=== PATIENT | female | born 1945 | race Caucasian/White ===

== ENCOUNTER → 2019-07-22 11:22 | Outpatient (CLI) | payer MEDICARE, SELFPAY ==
[2019-07-22 13:04] LABS: BUN Creatinine Ratio 27.9 (6-22); Blood Urea Nitrogen 19 mg/dL (7-17); Carbon Dioxide 27 mmol/L (22-32); Chloride 102 mmol/L (98-107); Estimated Glomerular Filt Rate > 60.0 mL/min (>60); Glucose 156 mg/dL (80-110); HEMOLYSIS < 15 (0-50); Potassium 3.5 mmol/L (3.4-5.1); Sodium 137 mmol/L (137-145)
[2019-07-22 13:16] LABS: Vitamin D 25 Hydroxy (D3) 22.3 ng/mL (30.0-100.0)
== END ==
PROVIDERS: PCP Student in an Organized Health Care Education/Training Program; Referring Provider Student in an Organized Health Care Education/Training Program; Visit Provider Student in an Organized Health Care Education/Training Program
DX: E55.9 Vitamin D deficiency, unspecified (principal); I10 Essential (primary) hypertension
CPT/HCPCS: 36415; 80048; 82306

== ENCOUNTER → 2019-10-22 11:20 | Outpatient (CLI) | payer MEDICARE, SELFPAY ==
--- NOTE | 2019-10-22 11:32 | DI.MG.S_ITS ---
Patient Name: HILL MENESES date: 1945 Sex: F Attending Physician: Letitia Indications: Date: 10/22/2019 11:38 At the request of: HAILEY ARTEAGA Procedure: MM screening mammo BI BILATERAL DIGITAL SCREENING MAMMOGRAM 3D/2D WITH CAD: 10/22/2019 CLINICAL: Routine screening. Comparison is made to exams dated: 02/17/2017 mammogram, 07/13/2014 mammogram, and 06/22/2014 mammogram - [facility]. The tissue of both breasts is heterogeneously dense. This may lower the sensitivity of mammography. Current study was also evaluated with a Computer Aided Detection (CAD) system. No significant masses, calcifications, or other findings are seen in either breast. There has been no significant interval change. IMPRESSION: NEGATIVE There is no mammographic evidence of malignancy. A 1 year screening mammogram is recommended. This exam was interpreted at Station ID: [id number]. NOTE: For mammograms, a report in lay terms will be sent to the patient. Approximately 15% of breast malignancies will not be visualized mammographically. In the management of a palpable breast mass, a negative mammogram must not discourage biopsy of a clinically suspicious lesion. Electronically Signed By: Faheem bowling/eulalia:10/24/2019 08:51:06 letter sent: Normal Exam ACR BI-RADS Category 1: Negative [id number]
== END ==
PROVIDERS: PCP Student in an Organized Health Care Education/Training Program; Referring Provider Student in an Organized Health Care Education/Training Program; Visit Provider Student in an Organized Health Care Education/Training Program
DX: Z12.31 Encounter for screening mammogram for malignant neoplasm of breast (principal)
CPT/HCPCS: 77063; 77067

== ENCOUNTER → 2019-10-27 12:07 | Outpatient (CLI) | payer MEDICARE, SELFPAY ==
[2019-10-27 13:03] LABS: Appearance Urine UA SL CLOUDY; Bilirubin Urine UA NEGATIVE (NEGATIVE); Color Urine UA YELLOW; Glucose Urine UA NEGATIVE (Negative); Ketones Urine UA NEGATIVE (NEGATIVE); Leukocyte Esterase Urine UA 1+ (NEGATIVE); Nitrite Urine UA POSITIVE (Negative); Occult Blood Urine UA 1+ (Negative); Protein Urine UA NEGATIVE (Negative); Urobilinogen Urine UA 0.2 E.U./dL (0.2)
[2019-10-27 13:06] LABS: pH Urine UA 5.5 (4.5-8.0)
[2019-10-27 13:16] LABS: Bacteria Urine Many (>30); RBC Urine 1-5/HPF (0-5/HPF); Squamous Epithelial Cell Urine 1-5 /HPF (0-5/HPF); WBC Urine 10-30/HPF (0-5/HPF)
[2019-10-27 13:17] LABS: Culture Indicated Urine Specimen Cultured
== END ==
PROVIDERS: PCP Student in an Organized Health Care Education/Training Program; Referring Provider Student in an Organized Health Care Education/Training Program; Visit Provider Student in an Organized Health Care Education/Training Program
DX: R82.90 Unspecified abnormal findings in urine (principal); Z87.440 Personal history of urinary (tract) infections
CPT/HCPCS: 81001; 87077; 87086; 87186

== ENCOUNTER 2020-03-13 23:58 | Observation (INO) | payer MEDICARE, SELFPAY ==
[2020-03-14] VITALS (22 sets, daily range): BP systolic 129–202; BP diastolic 59–169; PULSE 72–84; RESP 14–24; TEMP 35.8–36.8; O2SAT 88–97; BMI 25.0
--- NOTE | 2020-03-14 00:14 | DI.RAD.S_ITS ---
PROCEDURE: XR CHEST 1V INDICATIONS: shortness of breath TECHNIQUE: One view of the chest was acquired. COMPARISON: None. FINDINGS: Surgical changes and devices: None. Lungs and pleura: Lungs are clear. No pleural effusions or pneumothorax. Mediastinum: Mediastinal contours appear normal. Heart size is normal. Bones and chest wall: No suspicious bony lesions. Overlying soft tissues appear unremarkable. IMPRESSION: No acute cardiopulmonary disease process. Dictated by: Darleen Delgado MD, PhD on 03/14/2020 at 9:09 Approved by: Darleen Delgado MD, PhD on 03/14/2020 at 9:10
[2020-03-14 00:25] LABS: Add Manual Diff / Slide Review NO; Basophils Absolute Auto 0 /uL (0-100); Basophils Percent Auto 0.6 % (0-2); Eosinophils Absolute Auto 200 /uL (0-450); Eosinophils Percent Auto 2.7 % (2-4); Hematocrit 41.9 % (36-46); Hemoglobin 14.4 g/dL (12.0-16.0); Lymphocytes Absolute Auto 2600 /uL (1100-4500); Lymphocytes Percent Auto 37.2 % (25-40); Mean Corpuscular HGB Conc 34.4 % (30-36); Mean Corpuscular Hemoglobin 32.4 PG (26-34); Monocytes Absolute Auto 900 /uL (0-900); Neutrophils Absolute Auto 3400 /uL (1500-7000); Neutrophils Percent Auto 47.5 % (50-75); Platelet Count 277 X10^3/uL (150-400); Red Blood Cell Count 4.46 X10^6/uL (4.0-5.2); Red Cell Distribution Width 12.9 % (11.6-14.8); White Blood Cell Count 7.1 X10^3/uL (4.5-11.0)
[2020-03-14 00:33] LABS: Alanine Aminotransferase 22 IU/L (<35); Albumin 4.3 g/dL (3.5-5.0); Albumin Globulin Ratio 1.3 (1.0-2.8); Alkaline Phosphatase 80 U/L (38-126); Aspartate Aminotransferase 32 IU/L (14-36); BUN Creatinine Ratio 21.5 (6-22); Bilirubin Total 0.4 mg/dL (0.2-1.3); Blood Urea Nitrogen 26 mg/dL (7-17); Calcium 9.3 mg/dL (8.4-10.2); Carbon Dioxide 30 mmol/L (22-32); Chloride 101 mmol/L (98-107); Estimated Glomerular Filt Rate 43.6 mL/min (>60); Globulin 3.4 g/dL (1.7-4.1); Glucose 129 mg/dL (80-110); HEMOLYSIS 21 (0-50); Lactate (Lactic Acid) 1.6 mmol/L (0.7-2.1); Potassium 3.5 mmol/L (3.4-5.1); Sodium 139 mmol/L (137-145); Total Protein 7.7 g/dL (6.3-8.2)
--- NOTE | 2020-03-14 00:47 | ED_ITS ---
HPI - SOB/Dyspnea General Chief Complaint: Upper Respiratory Symptoms Stated Complaint: states difficulty breathing Time Seen by Provider: 03/14/20 00:38 Source: patient Mode of arrival: Ambulatory Limitations: no limitations History of Present Illness HPI Narrative: Patient complains of nocturnal dyspnea/with laying down. Denies any recent illness cough cold congestion fever chills or COVID exposure. Denies any chest pain or palpitations. No weight gain or extremity edema. History of asthma/COPD. Followed by senior web architect at [facility]. Two years ago. Is on breathing treatments. Former smoker decades ago. Is not on oxygen at home. Five days ago at home she had experienced at bedtime laying down shortness of breath could not catch her breath. No pain. No syncope. No history of blood clots in legs or lungs. No recent long travel or immobilization. No symptoms again no symptoms during the day. No exertional chest pain or dyspnea. Blood pressure noted. Patient is very anxious. Tonight she was spending the night at a friend's house and had the same experience at rest/laying down. Could not sleep. Again no pain. Only dyspnea. Feeling better now. Patient evaluated by respiratory therapist. Peak flow is appropriate. Clear lung sounds and no hypoxia. No indications for breathing treatment. Patient is a retired nurse from [facility] Complaint: shortness of breath Related Data Home Medications Medication Instructions Recorded Confirmed albuterol sulfate 2 inh INHALATION Q4-6H PRN 03/14/20 03/14/20 naproxen 03/14/20 Previous Rx's Medication Instructions Recorded umeclidinium 62.5 mcg-vilanterol 1 inhalation INHALATION DAILY #60 07/22/19 25 mcg/actuation powdr for each inhalation estradiol 1 mg tablet 1 mg PO DAILY #90 tab 08/15/19 levothyroxine 75 mcg tablet 75 mcg PO QAM #90 tab 08/25/19 simvastatin 20 mg tablet 20 mg PO DAILY #90 tab 08/25/19 hydrochlorothiazide 12.5 mg tablet 12.5 mg PO DAILY #90 tab 09/02/19 losartan 50 mg tablet 50 mg PO DAILY #90 tab 09/02/19 Allergies Allergy/AdvReac Type Severity Reaction Status Date / Time lisinopril Allergy Mild cough Verified 07/22/19 10:25 Review of Systems Review of Systems Narrative: GENERAL: Denies chills, fatigue, malaise, fever, sweats. HEENT: Denies sinus pain, ear pain, sore throat, difficulty swallowing RESPIRATORY: Complaint dyspnea, denies cough CARDIOVASCULAR: Denies chest pain, palpitations, edema, GASTROINTESTINAL: Denies nausea, vomiting, abdominal pain, diarrhea, constipation, melena. : Denies dysuria, frequency, hematuria MUSCULOSKELETAL: denies muscle or bony pain SKIN: Denies rash, skin lesions NEUROLOGIC: Denies weakness, headache, numbness, change in speech, confusion ROS Unobtainable: All systems reviewed & are unremarkable except as noted in HPI and below Patient History Social History household members: none Smoking Status: Former smoker Smoking Status: Former smoker alcohol intake frequency: holidays/special occasions only Substance Use Type: does not use Exam Narrative Exam Narrative: GENERAL: patient appears stated age. Well-nourished, well- developed patient, in no distress, not toxic not dyspneic HEAD: Normocephalic. EYES: Pupils equal round and reactive. No scleral icterus. No injection no discharge ENT: Mucous membranes moist. No drooling no tongue elevation no trismus no malocclusion NECK: Trachea midline. Non tender CARDIOVASCULAR: Regular rate and rhythm without murmurs, gallops, or rubs. RESPIRATORY: Clear to auscultation. Breath sounds equal bilaterally. No wheezes, rales, or rhonchi. Speaks full sentences GASTROINTESTINAL: Abdomen soft, non-tender, nondistended. EXTREMITIES: No gross deformities. No ankle or pedal edema BACK: Nontender without deformity or crepitance. No flank tenderness. NEURO: AOx4. SKIN: Warm and dry PSYCH: Slightly anxious, is cooperative Initial Vital Signs Initial Vital Signs: Vital Signs Temperature 96.5 F L 03/14/20 00:00 Pulse Rate 80 03/14/20 00:00 Respiratory Rate 20 03/14/20 00:00 Blood Pressure 192/88 H 03/14/20 00:00 Pulse Oximetry 97 03/14/20 00:00 Course Course Course Narrative: Improvement with blood pressure while here. Decision to Admit Date: 03/14/20 Decision to Admit time: 01:58 Orders Ordered: ED Orders 03/14/20 00:14 XR chest 1V Stat EKG-12 Lead Stat Measure peak expiratory flow ONCE RT Consult Eval and Treat Now 03/14/20 00:15 Complete Blood Count AUTO DIFF Stat Comprehensive Metabolic Panel Stat Lactate (Lactic Acid) Stat NT-proBNP (BNP-Adult 18+) Stat 03/14/20 00:55 COVID19 Stat Reevaluation(s) Reevaluation #1: Blood pressure of 157/89, has improved without medication. Patient much more relaxed. Up and walking in hallway 88/89% room air. Patient states her baseline is 98% room air. Time: 01:43 Reevaluation #2: Reviewed with patient and she agrees for admission Time: 01:44 Consultations Consultation #1: Spoke with hospitalist, Jigar, will admit. No D-dimer at this time. Patient renal function not amenable for IV contrast CT Time: 01:58 Vital Signs Vital signs: Vital Signs - 8 hr 03/14/20 00:00 03/14/20 00:29 03/14/20 00:53 Temperature 96.5 F L Pulse Rate 80 82 83 Respiratory Rate 20 14 24 Blood Pressure 192/88 H Pulse Oximetry 97 96 92 03/14/20 00:57 03/14/20 01:00 03/14/20 01:30 Temperature Pulse Rate 83 84 80 Respiratory Rate 21 24 18 Blood Pressure 164/88 H 157/84 H 157/89 H Pulse Oximetry 91 91 92 03/14/20 01:48 03/14/20 02:00 Temperature Pulse Rate 80 84 Respiratory Rate 18 Blood Pressure 202/169 H Pulse Oximetry 96 97 MDM - SOB/Dyspnea Differential Diagnosis Differential diagnosis: Likely acute exacerbation of chronic obstructive airways disease, congestive heart failure, community acquired pneumonia and asthma with exacerbation Lab Data Attestation: I reviewed the patient's lab results. Result diagrams: 03/14/20 00:15 03/14/20 00:15 Labs: Lab Results 03/14/20 03/14/20 03/14/20 Range/Units 00:15 00:15 00:15 WBC 7.1 (4.5-11.0) X10^3/uL RBC 4.46 (4.0-5.2) X10^6/uL Hgb 14.4 (12.0-16.0) g/dL Hct 41.9 (36-46) % MCV 94.0 (80-100) fL MCH 32.4 (26-34) PG MCHC 34.4 (30-36) % RDW 12.9 (11.6-14.8) % Plt Count 277 (150-400) X10^3/uL Neut % (Auto) 47.5 L (50-75) % Lymph % (Auto) 37.2 (25-40) % [place] % (Auto) 12.0 (3-14) % Eos % (Auto) 2.7 (2-4) % Baso % (Auto) 0.6 (0-2) % Neut # (Auto) 3400 (7313-3636) /uL Lymph # (Auto) 2600 (7690-4813) /uL [place] # (Auto) 900 (0-900) /uL Eos # (Auto) 200 (0-450) /uL Baso # (Auto) 0 (0-100) /uL Sodium 139 (137-145) mmol/L Potassium 3.5 (3.4-5.1) mmol/L Chloride 101 (98-107) mmol/L Carbon Dioxide 30 (22-32) mmol/L BUN 26 H (7-17) mg/dL Creatinine 1.21 H (0.52-1.04) mg/dL Estimated GFR 43.6 L (>60) mL/min BUN/Creatinine Ratio 21.5 (6-22) Glucose 129 H (80-110) mg/dL Lactate 1.6 (0.7-2.1) mmol/L Calcium 9.3 (8.4-10.2) mg/dL Total Bilirubin 0.4 (0.2-1.3) mg/dL AST 32 (14-36) IU/L ALT 22 (<35) IU/L Alkaline Phosphatase 80 (38-126) U/L NT-Pro-B Natriuret Pep (<125) pg/mL Total Protein 7.7 (6.3-8.2) g/dL Albumin 4.3 (3.5-5.0) g/dL Globulin 3.4 (1.7-4.1) g/dL Albumin/Globulin Ratio 1.3 (1.0-2.8) SARS-CoV-2 (PCR) (Negative) 03/14/20 03/14/20 Range/Units 00:15 00:55 WBC (4.5-11.0) X10^3/uL RBC (4.0-5.2) X10^6/uL Hgb (12.0-16.0) g/dL Hct (36-46) % MCV (80-100) fL MCH (26-34) PG MCHC (30-36) % RDW (11.6-14.8) % Plt Count (150-400) X10^3/uL Neut % (Auto) (50-75) % Lymph % (Auto) (25-40) % [place] % (Auto) (3-14) % Eos % (Auto) (2-4) % Baso % (Auto) (0-2) % Neut # (Auto) (9800-6275) /uL Lymph # (Auto) (8179-8671) /uL [place] # (Auto) (0-900) /uL Eos # (Auto) (0-450) /uL Baso # (Auto) (0-100) /uL Sodium (137-145) mmol/L Potassium (3.4-5.1) mmol/L Chloride (98-107) mmol/L Carbon Dioxide (22-32) mmol/L BUN (7-17) mg/dL Creatinine (0.52-1.04) mg/dL Estimated GFR (>60) mL/min BUN/Creatinine Ratio (6-22) Glucose (80-110) mg/dL Lactate (0.7-2.1) mmol/L Calcium (8.4-10.2) mg/dL Total Bilirubin (0.2-1.3) mg/dL AST (14-36) IU/L ALT (<35) IU/L Alkaline Phosphatase (38-126) U/L NT-Pro-B Natriuret Pep 64 (<125) pg/mL Total Protein (6.3-8.2) g/dL Albumin (3.5-5.0) g/dL Globulin (1.7-4.1) g/dL Albumin/Globulin Ratio (1.0-2.8) SARS-CoV-2 (PCR) Negative (Negative) Imaging Data Chest x-ray: Radiologist's Impression: No acute cardiopulmonary abnormality ECG Data Attestation: I personally reviewed and interpreted this ECG as follows: Interpretation: Normal sinus rhythm, no ST elevation or depression. Rate 76. MDM Narrative Medical decision making narrative: Patient is not on beta-marlys. Appropriate for admission. Patient is not at baseline room air oxygen saturation. Is hypoxic. Discharge Plan Departure Patient Disposition: Admitted as Observation Clinical Impression: Acute dyspnea Admit Date/Time: 03/14/20 02:01 Admit Provider: Rafael Daily
[2020-03-14 01:09] LABS: NT-proBNP (BNP-Adult 18+) 64 pg/mL (<125)
[2020-03-14 01:16] LABS: COVID19 -Nasal RAPID Negative (Negative)
[2020-03-14 02:58] LABS: Creatine Kinase 81 U/L (30-135)
[2020-03-14 03:06] LABS: Magnesium 1.8 mg/dL (1.6-2.3)
[2020-03-14] MEDS: SODIUM CHLORIDE 0.9% 1,000 ML 100 ML IV (03:09)
[2020-03-14 03:11] LABS: Troponin I < 0.012 ng/mL (0.01-0.034)
--- NOTE | 2020-03-14 04:07 | PC.NURSE ---
patient got admitted from ED to room 214 AC, pt is ambulating independently, A and O [id number] chest pain, difficulty breathing, pain, dizziness, and nausea. Pt is hard of hearing and does not have her hearing aids with her. call light functions explained to patient and is within reach, bed in lowest position. will continue to monitor
[2020-03-14] MEDS: LEVOTHYROXINE 75 MCG TABLET PO (05:00)
--- NOTE | 2020-03-14 06:03 | P.HP_ITS ---
History of Present Illness History of Present Illness Date Patient Seen: 03/14/20 Time Patient Seen: 03:05 Chief complaint: states difficulty breathing Narrative: Ms. Anthony Mitchell is a 74-year-old female patient with a past medical history significant for hypertension, COPD mild emphysema, hyperlipidemia, hypothyroidism and major depression who presents to the ER with 2 episodes of waking up at night profoundly short of breath. The patient Lives on [facility] the 1st episode was 5 days ago when she went to bed and woke up gasping for air with severe hunger and diaphoresis tremulous. She states everything felt heavy but denies complaints of chest pain or palpitations. The patient was cleared after the 1st event and came to stay with a friend in [place]. last night she experienced the same severe dyspnea. She had gone to bed and again woke up with severe air hunger with diaphoresis and tremulous and presented to the ER. the patient is not experience the symptoms previously and has had no recent flu or cold symptoms, fevers or chills and no known COVID-19 exposures. She denies headaches or dizziness nasal congestion or sore throat. She reports no chest pain or palpitations. She has mild COPD and is followed by pulmonology at [facility]. She has been using her Anoro inhaler with good effect. her breathing had returned to normal between episodes without complications. She denies complaints of abdominal pain, nausea vomiting and has had no changes in bowel or bladder habits. The patient is typically active and reports she go up a flight of stairs issue base herself without dyspnea. Upon arrival to the ER the patient is afebrile with temperature 96.5?, heart rate of 80, blood pressure of 192/88, respirations 20 saturating 97% on room air. A chest x-ray obtained which shows no acute cardiopulmonary pathology. Twelve lead EKG shows sinus rhythm at rate of 76 with no ectopy, ST or T-wave changes, septal infarct Q-waves in V1 and V2. On laboratory analysis her WBCs are 7.1 without shift, hemoglobin of 14.4 and a hematocrit of 41.9 with platelets of 277. her electrolytes are within normal limits she has a BUN of 26 and a creatinine of 1.21 with an EGFR 43.6 and BUN creatinine ratio of 21.5. Her liver functions are all within normal limits. proBNP is 64. COVID screening is negative. While in the ER is reported the patient's oxygen saturations dropped into the 80s to low 90s far below the patient's typical reported saturation of 96-98%. The patient is admitted to the hospitalist service for further evaluation of dyspnea. Patient History Medical History (Updated 03/14/20 @ 06:18 by CRUZ Albarado) Acquired hypothyroidism Cervical arthritis COPD (chronic obstructive pulmonary disease) Dysthymia Essential hypertension Mixed hyperlipidemia Surgical History (Updated 03/14/20 @ 06:18 by CRUZ Albarado) History of hysterectomy Family & Social History Family History (Updated 03/14/20 @ 06:20 by CRUZ Albarado) Brother Diabetes mellitus Sister Diabetes mellitus Mother Diabetes mellitus Dementia Cancer Father Alcoholism Trauma Social History: household members none Prior Living Arrangements House Safety & Behavioral: Feels Safe in Current Yes Environment Been Physically Hurt or No Threatened By a Person Suicidal Ideation Description None Suicide Plan Description No Plan Tobacco & Substance use: Smoking Status Former smoker alcohol intake frequency holiday/special occasion Substance Use Type does not use Meds Home Medications and Allergies Home Medications Medication Instructions Recorded Confirmed Type umeclidinium 62.5 mcg-vilanterol 1 inhalation INHALATION DAILY #60 07/22/19 03/14/20 Rx 25 mcg/actuation powdr for each inhalation estradiol 1 mg tablet 1 mg PO DAILY #90 tab 08/15/19 03/14/20 Rx levothyroxine 75 mcg tablet 75 mcg PO QAM #90 tab 08/25/19 03/14/20 Rx simvastatin 20 mg tablet 20 mg PO DAILY #90 tab 08/25/19 03/14/20 Rx hydrochlorothiazide 12.5 mg tablet 12.5 mg PO DAILY #90 tab 09/02/19 03/14/20 Rx losartan 50 mg tablet 50 mg PO DAILY #90 tab 09/02/19 03/14/20 Rx albuterol sulfate 2 inh INHALATION Q4-6H PRN 03/14/20 03/14/20 History naproxen 03/14/20 History Allergies Allergy/AdvReac Type Severity Reaction Status Date / Time lisinopril Allergy Mild cough Verified 07/22/19 10:25 Review of Systems Review of Systems ROS: Yes All systems reviewed with the patient and are negative except as otherwise documented Exam Vital Signs (past 8 hours): - 03/14/20 00:00 03/14/20 00:29 03/14/20 00:53 Temperature 96.5 F L Pulse Rate 80 82 83 Respiratory Rate 20 14 24 Blood Pressure 192/88 H Pulse Oximetry 97 96 92 03/14/20 00:57 03/14/20 01:00 03/14/20 01:30 Temperature Pulse Rate 83 84 80 Respiratory Rate 21 24 18 Blood Pressure 164/88 H 157/84 H 157/89 H Pulse Oximetry 91 91 92 03/14/20 01:48 03/14/20 02:00 03/14/20 02:08 Temperature Pulse Rate 80 84 Respiratory Rate 18 22 Blood Pressure 202/169 H Pulse Oximetry 96 97 88 L 03/14/20 02:25 03/14/20 02:47 Temperature 97.9 F Pulse Rate 77 Respiratory Rate 18 Blood Pressure 150/83 H Pulse Oximetry 96 95 Oxygen Delivery Method Room Air Oxygen Flow Rate 0 Narrative Exam Narrative: GENERAL APPEARANCE: well developed, well nourished, lying semi recumbent in bed in no acute distress. HEENT: Normocephalic, PERRLA, conjunctiva clear, EOMs intact without nystagmus, mucous membranes are pink and dry. NECK/THYROID: neck supple, no JVD, no thyromegaly, trachea midline. LYMPH NODES: no cervical or supraclavicular lymphadenopathy. SKIN: [place], warm and dry, no visible lesions, rashes, ulcerations or petechiae. HEART: regular rate and rhythm, S1-S2, no murmur, no rubs or gallops, brisk capillary refill, 2+ dorsalis pedis pulses, no edema. LUNGS: clear to auscultation bilaterally, no coarseness crackles or wheezing, no cough present. CHEST: Symmetrical movement, no accessory muscle use, good tidal volume. ABDOMEN: Soft, no distention, no epigastric or abdominal tenderness, no organomegaly, no flank or suprapubic tenderness, active bowel tones. BACK: Normal curvature, nontender to palpation, no CVA tenderness on percussion EXTREMITIES: moves all extremities, strength is 5/5 and symmetrical, no deformities or joint effusions, no clubbing or cyanosis. NEUROLOGIC: AAO x4, no lateralizing neurologic deficits, cranial nerves II-XII grossly intact, decreased sensation bilateral toes, mildly impaired hearing. PSYCH: Good judgment, good insight, linear thought process, cooperative, appropriate with stable behavior Objective Labs Result Diagrams: 03/14/20 00:15 03/14/20 00:15 Labs: Laboratory Results - last 24 hr 03/14/20 03/14/20 03/14/20 00:15 00:15 00:15 WBC 7.1 RBC 4.46 Hgb 14.4 Hct 41.9 MCV 94.0 MCH 32.4 MCHC 34.4 RDW 12.9 Plt Count 277 Neut % (Auto) 47.5 L Lymph % (Auto) 37.2 [place] % (Auto) 12.0 Eos % (Auto) 2.7 Baso % (Auto) 0.6 Neut # (Auto) 3400 Lymph # (Auto) 2600 [place] # (Auto) 900 Eos # (Auto) 200 Baso # (Auto) 0 Sodium 139 Potassium 3.5 Chloride 101 Carbon Dioxide 30 BUN 26 H Creatinine 1.21 H Estimated GFR 43.6 L BUN/Creatinine Ratio 21.5 Glucose 129 H Lactate 1.6 Calcium 9.3 Magnesium Total Bilirubin 0.4 AST 32 ALT 22 Alkaline Phosphatase 80 Total Creatine Kinase CK-MB (CK-2) CK-MB (CK-2) Rel Index Troponin I NT-Pro-B Natriuret Pep Total Protein 7.7 Albumin 4.3 Globulin 3.4 Albumin/Globulin Ratio 1.3 SARS-CoV-2 (PCR) 03/14/20 03/14/20 03/14/20 00:15 00:15 00:15 WBC RBC Hgb Hct MCV MCH MCHC RDW Plt Count Neut % (Auto) Lymph % (Auto) [place] % (Auto) Eos % (Auto) Baso % (Auto) Neut # (Auto) Lymph # (Auto) [place] # (Auto) Eos # (Auto) Baso # (Auto) Sodium Potassium Chloride Carbon Dioxide BUN Creatinine Estimated GFR BUN/Creatinine Ratio Glucose Lactate Calcium Magnesium 1.8 Total Bilirubin AST ALT Alkaline Phosphatase Total Creatine Kinase 81 CK-MB (CK-2) TNP CK-MB (CK-2) Rel Index TNP Troponin I < 0.012 NT-Pro-B Natriuret Pep 64 Total Protein Albumin Globulin Albumin/Globulin Ratio SARS-CoV-2 (PCR) 03/14/20 00:55 WBC RBC Hgb Hct MCV MCH MCHC RDW Plt Count Neut % (Auto) Lymph % (Auto) [place] % (Auto) Eos % (Auto) Baso % (Auto) Neut # (Auto) Lymph # (Auto) [place] # (Auto) Eos # (Auto) Baso # (Auto) Sodium Potassium Chloride Carbon Dioxide BUN Creatinine Estimated GFR BUN/Creatinine Ratio Glucose Lactate Calcium Magnesium Total Bilirubin AST ALT Alkaline Phosphatase Total Creatine Kinase CK-MB (CK-2) CK-MB (CK-2) Rel Index Troponin I NT-Pro-B Natriuret Pep Total Protein Albumin Globulin Albumin/Globulin Ratio SARS-CoV-2 (PCR) Negative Assessment & Plan Assessment & Plan narrative: This is a 74-year-old female patient with a past medical history significant for hypertension, COPD mild emphysema, hyperlip idemia, hypothyroidism and major depression who presents to the ER with 2 separate episodes of waking from sleep with severe air hunger, ?gasping for air?, diaphoretic and tremulous resolving without intervention. 1. Acute episodic dyspnea, present on admission, active. -patient with diminished oxygen saturation in the upper 80s to low 90s when she is typically in the upper 90s. Patient denies complaints of shortness of breath cough or wheezing. -chest x-ray is finds no acute cardiopulmonary pathology, 12 lead EKG finds a sinus rhythm at a rate of [address] or T-wave changes and evidence of a septal infarct with Q-waves in V1 and V2. -CBCs and chemistries are within normal limits except for a BUN of 26 and creatinine 1.21 and a nonfasting glucose 126. -proBNP is 64 will check a cardiac troponin. -differential diagnosis includes: Arrhythmia-patient denies chest pain or palpitations. Cardiogenic-no evidence of flash pulmonary edema breath sounds clear, prior septal infarct, ProBNP is 64. Obstructive sleep apnea or central sleep apnea-patient does endorse history of snoring but typically sleeps on her stomach or her side Psychogenic-the patient is weaned herself off sertraline over the last 6 months that she took for depression following her 's , patient is anxious upon arrival to the ER. -the patient is on cardiac telemetry, patient may need follow-up older or Zio patch monitoring to rule out arrhythmia -requested respiratory therapy consult peak flows evaluated in the emergency department and is found acceptable. -Will monitor continuous pulse ox for sleep apnea. 2. COPD, emphysema, chronic, stable -patient with clear breath sounds, no evidence of pneumonia on chest x-ray, white blood cell count is within normal range. -patient may use her Anoro inhaler once daily -ordered albuterol inhaler 2 puffs every 4 hours as needed and DuoNeb b.i.d. as needed. -ordered supplemental oxygen to keep sat greater than 90%. 3. Acute kidney injury, present on admission, active -patient presents with a creatinine of 1.21, previous creatinine was 0.68 in July of 2019. -patient appears clinically dry and has elevated BUN at 26 and a BUN creatinine ratio of 21.5. Will hold hydrochlorothiazide. -will rehydrate the patient with normal saline 100 cc/hour. 4. Essential hypertension, chronic, stable -patient markedly hypertensive at 192/88 upon arrival to the ER, likely related to anxiety, blood pressure moderate stool 150/83. -will continue home regimen of losartan 50 mg daily and hold hydrochlorothiazide 12.5 mg daily. 5. Acquired hypothyroidism, chronic, stable. -continue home regimen of levothyroxine 75 mcg daily. VTE prophylaxis: Enoxaparin IV fluid: Normal saline 100 cc/hour Diet: Heart healthy Code status: Full code, patient designates her daughter Neeru to be her surrogate decision maker. The patient is admitted to the hospital due to the severity of her symptoms requiring additional monitoring and evaluation. The patient is admitted as observation with expected length of stay to be less than 2 midnights. COVID-19 COVID-19 status: Negative Result date/Date tested (Pos, Neg/Pending): 03/14/20 Scores GCS Mireya coma scale eye opening: Spontaneous [place] coma scale verbal response: Orientated [place] coma scale motor response: Obey commands Mireya coma scale total score: 15 Quality VTE Deep Vein Thrombosis/Pulmonary Embolism Present on Admission: No
[2020-03-14 07:19] LABS: BUN Creatinine Ratio 29.2 (6-22); Blood Urea Nitrogen 28 mg/dL (7-17); Calcium 8.8 mg/dL (8.4-10.2); Carbon Dioxide 29 mmol/L (22-32); Chloride 105 mmol/L (98-107); Glucose 110 mg/dL (80-110); HEMOLYSIS < 15 (0-50); Potassium 3.9 mmol/L (3.4-5.1); Sodium 137 mmol/L (137-145)
[2020-03-14] MEDS: LOSARTAN 50 MG TABLET PO (08:42)
[2020-03-14] MEDS: ENOXAPARIN 40 MG/0.4 ML SYRINGE SUBCUT (08:42)
[2020-03-14] MEDS: SIMVASTATIN 20 MG TABLET PO (08:42)
--- NOTE | 2020-03-14 10:58 | CM.DANOTE ---
DCP: Case received, EMR reviewed and met with patient. Introduced self and role. Was able to obtain information from patient regarding her baseline activity status and current living situation prior to hospitalization. DCP assessment completed with information currently available. Patient is a 74 year old female who admitted early this morning to the care of the hospitalist team. PCP: Dr. Dong. Payer: confirmed: Medicare. Patient came to the hospital via private vehicle secondary to having nocturnal dyspnea. Patient holds current diagnosis of exacerbated COPD/CHF. Patient has history of COPD, she was a smoker. She also sees pulmonology at [facility]. Met with patient in her room. She was sitting up in bed, alert and oriented. She is independent at baseline, she does not use home oxygen at baseline. She is a retired nurse from [employer]. She resides alone on [facility]. She had been staying with a friend in [place] when her symptoms started. P: DCP to continue to follow for any needs. Patient should be able to go home when she is medically stable. Shannon Serrano RN/Associate Professor Of Medicine
[2020-03-14 11:37] LABS: D Dimer 212 ng/mL (<230)
[2020-03-14 11:39] LABS: Blood Urea Nitrogen 23 mg/dL (7-17); Calcium 9.3 mg/dL (8.4-10.2); Carbon Dioxide 30 mmol/L (22-32); Chloride 105 mmol/L (98-107); Estimated Glomerular Filt Rate > 60.0 mL/min (>60); Glucose 105 mg/dL (80-110); HEMOLYSIS < 15 (0-50); Potassium 3.9 mmol/L (3.4-5.1); Sodium 139 mmol/L (137-145)
--- NOTE | 2020-03-14 13:55 | PC.NURSE ---
pt AO and receptive to care. IND in room. Tolerating heart healthy diet. Left AC PIV infusing NS at 50/hr per orders. Mid-90's oxygen, RA and denying complaints of SOB with activity. Tele- NSR. Diminished and clear lungs to right anterior. RT following.
--- NOTE | 2020-03-14 14:28 | DI.CT.S_ITS ---
PROCEDURE: CT ANGIO CHEST PE PROTOCOL INDICATIONS: r/o PE TECHNIQUE: After the administration of intravenous contrast, 2 mm thick sections acquired from the pulmonary apices to the posterior costophrenic angles. 3-dimensional maximum intensity projection (MIP) coronal and sagittal reformats were then acquired through the thorax. For radiation dose reduction, the following was used: automated exposure control, adjustment of mA and/or kV according to patient size. COMPARISON: None. FINDINGS: Image quality: Excellent. Pulmonary arteries: Pulmonary arteries are normal in size, and demonstrate no intraluminal filling defects to suggest central pulmonary embolism. Lungs and pleura: Moderate centrilobular emphysema. 3 mm pulmonary nodule, right upper lobe, image 49/6. 4 mm pulmonary nodule, right upper lobe, image 68/6. 2 separate subpleural 3 mm pulmonary nodules, left lower lobe, image 93/6. Lungs are clear. No pleural effusions or pneumothorax. Central and peripheral airways are patent. Mediastinum: Heart size is normal, without pericardial effusion. No mediastinal or hilar adenopathy. Thoracic aorta is normal in caliber and enhancement. Esophagus is normal in caliber, without hiatal hernia. Bones and chest wall: No suspicious bony lesions. Ribs and thoracic spine appear intact throughout. Thyroid gland is unremarkable. No axillary or supraclavicular adenopathy. Abdomen: Visualized upper abdominal solid organs appear normal in the early arterial phase of enhancement. IMPRESSION: 1. No evidence acute pulmonary emboli. 2. Moderate centrilobular emphysema. 3. Multiple small bilateral pulmonary nodules, the largest of which measures 4 mm. Please refer to the chart below for follow-up recommendations. Fleischner Society criteria for SOLID lung nodule followup. Nodule size (mm)Low-risk patientHigh-risk patient<6 (single or multiple)No routine followup.Optional CT at 12 months. 6-8 (single or multiple)CT at 6-12 months, then optional CT at 18-24 mo.CT at 6-12 months, then CT at 18-24 months. >8 (single)CT at 3 months, PET-CT, or biopsy. Same as for low-risk pts. >8 (multiple)CT at 3-6 months, then optional CT at 18-24 mo.CT at 3-6 months, then CT at 18-24 months. Fleischner Society criteria for SUB-SOLID lung nodule followup. Solitary pure ground-glass nodules<6 mm (ground glass or part solid)No followup needed. 6 mm or larger (ground glass)CT at 6-12 months to confirm persistence, then CT every 2 years until 5 years.6 mm or larger (part solid)CT at 3-6 months to confirm persistence, then annual CT until 5 years if unchanged and solid component remains <6 mm. Multiple sub-solid nodules<6 mmCT at 3-6 months, then CT consider at 2 & 4 years for high risk patients. [address] at 3-6 months. Subsequent management based on most suspicious lesions. Recommendations do not apply to lung cancer screening, patients with immunosuppression, or patients with known primary cancer. Dictated by: Jann García M.D. on 03/14/2020 at 15:07 Approved by: Jann García M.D. on 03/14/2020 at 15:17
--- NOTE | 2020-03-14 14:36 | PC.NURSE ---
STRESS TEST 03/15. No caffeine starting now. NPO at 0700 03/15. pt made aware.
[2020-03-14] MEDS: MELATONIN 3 MG TABLET 6 MG PO (20:27)
[2020-03-14] MEDS: SODIUM CHLORIDE 0.9% FLUSH 10 ML IV (20:27)
[2020-03-15] VITALS (8 sets, daily range): BP systolic 125–142; BP diastolic 78–85; PULSE 72–95; RESP 16–18; TEMP 36.5–36.6; O2SAT 94–97
--- NOTE | 2020-03-15 00:16 | PC.NURSE ---
2320 Received safe hand-off report. The patient is lying on her left side in bed. She is alert and oriented x4. She has a left antecubital PIV that is saline-locked, and is on room air. She denies pain, denies SOB. Lung sounds are diminished in all posterior valle. CPO2 is active and showing oxygen saturation at 93%. She will be NPO as of 0700. No s/sx of distress.
[2020-03-15] MEDS: LEVOTHYROXINE 75 MCG TABLET PO (06:01)
[2020-03-15 06:57] LABS: Add Manual Diff / Slide Review NO; Basophils Absolute Auto 0 /uL (0-100); Basophils Percent Auto 0.8 % (0-2); Eosinophils Absolute Auto 200 /uL (0-450); Eosinophils Percent Auto 4.9 % (2-4); Hematocrit 38.8 % (36-46); Hemoglobin 13.6 g/dL (12.0-16.0); Lymphocytes Absolute Auto 1300 /uL (1100-4500); Lymphocytes Percent Auto 30.1 % (25-40); Mean Corpuscular HGB Conc 35.2 % (30-36); Mean Corpuscular Hemoglobin 32.7 PG (26-34); Monocytes Absolute Auto 600 /uL (0-900); Neutrophils Absolute Auto 2300 /uL (1500-7000); Neutrophils Percent Auto 51.2 % (50-75); Platelet Count 249 X10^3/uL (150-400); Red Blood Cell Count 4.17 X10^6/uL (4.0-5.2); Red Cell Distribution Width 12.9 % (11.6-14.8); White Blood Cell Count 4.5 X10^3/uL (4.5-11.0)
[2020-03-15 07:11] LABS: NT-proBNP (BNP-Adult 18+) 72 pg/mL (<125); Troponin I < 0.012 ng/mL (0.01-0.034)
[2020-03-15] MEDS: ENOXAPARIN 40 MG/0.4 ML SYRINGE SUBCUT (08:38)
[2020-03-15] MEDS: predniSONE 20 MG TABLET 40 MG PO (08:39)
[2020-03-15] MEDS: SIMVASTATIN 20 MG TABLET PO (08:39)
[2020-03-15] MEDS: LOSARTAN 50 MG TABLET PO (08:40)
[2020-03-15] MEDS: SODIUM CHLORIDE 0.9% FLUSH 10 ML IV (08:47)
--- NOTE | 2020-03-15 12:11 | DIET.PN ---
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 Pt has mild COPD c emphysema and will be d/c on 5d of prednisone therapy which will likely spike pts BG. HT: 165.1cm WT: 68kg BMI: 24.9 Labs: BG 105 Discussed s/sx of hyperglycemia including increased thirst and urination. Encouraged pt to avoid high sugar and high carb foods and beverages for the next two weeks to support BG. Reviewed foods to moderate/avoid including sugar sweetened beverages, limiting carbs to 30-45g per meal, and consuming up to 2c fresh fruit per day. Pt feels confident she can follow these reccs.
--- NOTE | 2020-03-15 13:17 | PM.TREADMILL ---
Cardiac Stress Test Report Referral & Results Date Patient Seen: 03/15/20 Time Patient Seen: 13:17 Requesting provider: Rafael Daily Indication: difficulty breathing Rest ECG: sinus rhythm Procedure Note: Standard Flynn protocol, 3:03mins, 3.2 METS Reduced exercise capacity, AGUILAR +43% Normal hemodynamic response to exercise No chest pain or anginal symptoms Moderate dyspnea at peak exercise No significant ST changes at peak exercise; no ectopy Impression: Normal exercise stress test Please note: Actual ECG tracings can be found in the PACS system.
--- NOTE | 2020-03-15 17:32 | DI.NM.S_ITS ---
DATE OF SERVICE: 03/15/2020 PROCEDURE: Exercise perfusion study. INDICATION: Shortness of breath, underlying hypertension and hyperlipidemia. RADIOPHARMACEUTICAL: 25.6 millicurie technetium-99m Myoview IV was injected at stress and 11.0 millicurie technetium-99m Myoview IV was injected at rest. CARDIAC STRESS: The patient underwent exercise perfusion study under the supervision of an attending staff. She walked on Flynn protocol for 3 minutes and 03 seconds, achieved 91 percent of target heart rate. Baseline blood pressure 146/80. Peak blood pressure 188/110 mmHg. No chest pain. Patient had shortness of breath. Baseline EKG revealed sinus rhythm with poor R-wave progression. During stress, no convincing ischemic changes. No significant arrhythmias seen. Patient achieved 4.6 METs of workload and functional aerobic impairment positive 43 percent. RAW DATA: There is adequate myocardial uptake. GATED STUDY: Shows stress LV ejection fraction 87 percent without any obvious wall motion abnormalities. Resting end-diastolic volume 37 mL. TID ratio 0.54, which is within normal limits. Lung/heart ratio 0.19. MYOCARDIAL PERFUSION: Stress supine and stress prone images revealed normal myocardial perfusion. During resting supine, there was some mildly decreased perfusion of the basal septum. CONCLUSION: I will call this study a normal myocardial perfusion study, as stress supine and stress prone images revealed normal myocardial perfusion. Poor exercise tolerance. Mildly hypertensive blood pressure response. No obvious ischemic electrocardiographic changes or significant arrhythmias seen. No anginal symptoms. The patient had shortness of breath during exercise. As far as perfusion scan is concerned, this is a low-risk myocardial perfusion scan. Anthony Mitchell - Mylene/rian doc#: [id number]/job#: [id number] dd: 03/15/2020 17:14:00 dt: 03/15/2020 17:24:00 DICTATING MD/COPIES TO: Alona Mayfield MD COPIES MNE: KRYSTIAN;
--- NOTE | 2020-03-15 17:51 | P.DS_ITS ---
History of Present Illness History of Present Illness Date Patient Seen: 03/15/20 Chief complaint: states difficulty breathing Narrative: Ms. Anthony Mitchell is a 74-year-old female patient with a past medical history significant for hypertension, COPD mild emphysema, hyperlipidemia, hypothyroidism and major depression who presents to the ER with 2 episodes of waking up at night profoundly short of breath. The patient Lives on [facility] the 1st episode was 5 days ago when she went to bed and woke up gasping for air with severe hunger and diaphoresis tremulous. She states everything felt heavy but denies complaints of chest pain or palpitations. The patient was cleared after the 1st event and came to stay with a friend in [place]. last night she experienced the same severe dyspnea. She had gone to bed and again woke up with severe air hunger with diaphoresis and tremulous and presented to the ER. the patient is not experience the symptoms previo usly and has had no recent flu or cold symptoms, fevers or chills and no known COVID-19 exposures. She denies headaches or dizziness nasal congestion or sore throat. She reports no chest pain or palpitations. She has mild COPD and is followed by pulmonology at [facility]. She has been using her Anoro inhaler with good effect. her breathing had returned to normal between episodes without complications. She denies complaints of abdominal pain, nausea vomiting and has had no changes in bowel or bladder habits. The patient is typically active and reports she go up a flight of stairs issue base herself without dyspnea. Upon arrival to the ER the patient is afebrile with temperature 96.5?, heart rate of 80, blood pressure of 192/88, respirations 20 saturating 97% on room air. A chest x-ray obtained which shows no acute cardiopulmonary pathology. Twelve lead EKG shows sinus rhythm at rate of 76 with no ectopy, ST or T-wave changes, septal infarct Q-waves in V1 and V2. On laboratory analysis her WBCs are 7.1 without shift, hemoglobin of 14.4 and a hematocrit of 41.9 with platelets of 277. her electrolytes are within normal limits she has a BUN of 26 and a creatinine of 1.21 with an EGFR 43.6 and BUN creatinine ratio of 21.5. Her liver functions are all within normal limits. proBNP is 64. COVID screening is negative. While in the ER is reported the patient's oxygen saturations dropped into the 80s to low 90s far below the patient's typical reported saturation of 96-98%. The patient is admitted to the hospitalist service for further evaluation of dyspnea. Discharge Providers Provider Date of admission: 03/14/20 02:01 Discharge Date: 03/15/20 Primary care physician: Devon Dong MD Consults: 03/14/20 02:51 Consult to Dietitian, Adult Routine Comment: Reason For Exam: Glucose intolerance Consult to Discharge Planning Routine Comment: Discharge provider: Hailey Santacruz MD Summary Hospital Course Discharge Diagnosis: 1. Probable COPD exacerbation 2. Hypertension 3. Hypothyroidism 4. Hyperlipidemia Hospital Course: Patient was admitted to the hospital having presented with profound shortness of breath. She was asleep and woke up with severe shortness of breath that was quite concerning. She had no chest pain. No acid reflux. Patient was placed on prednisone 40 mg daily with some improvement of her breathing. She underwent CT angio which showed no evidence of pulmonary embolus. It did show centrilobular emphysema. In addition the patient had a Lexiscan to rule out the possibility of cardiac ischemia. The perfusion scan was normal her LV function was normal and it was felt that the patient was at low risk for cardiac disease. Patient improved clinically and was deemed appropriate for discharge. She will follow-up with her biomedical engineering technician Dr. Torres 1-2 weeks. Status at Discharge Cognitive/behavioral status at discharge: oriented Functional status at discharge: independent ambulation Overall status at discharge: patient is back to baseline Time Spent with Patient Time spent: Less than 30 minutes Exam Vital Signs (past 8 hours): - 03/15/20 10:10 03/15/20 12:00 03/15/20 16:00 Temperature 97.7 F Pulse Rate 72 Respiratory Rate 16 Blood Pressure Pulse Oximetry 95 95 97 03/15/20 16:04 Temperature 97.9 F Pulse Rate 95 H Respiratory Rate 18 Blood Pressure 125/85 Pulse Oximetry 95 Oxygen Delivery Method Room Air Oxygen Flow Rate 0 Narrative Exam Narrative: Pleasant elderly female lying in bed in no acute distress Lungs: Clear to auscultation Cardiac exam: Regular rate and rhythm normal S1-S2 Abdomen: Soft nontender nondistended Extremities: No edema Objective Labs Result Diagrams: 03/15/20 05:56 03/14/20 11:12 Labs: Laboratory Results - last 24 hr 03/15/20 03/15/20 05:56 05:56 WBC 4.5 RBC 4.17 Hgb 13.6 Hct 38.8 MCV 93.0 MCH 32.7 MCHC 35.2 RDW 12.9 Plt Count 249 Neut % (Auto) 51.2 Lymph % (Auto) 30.1 [place] % (Auto) 13.0 Eos % (Auto) 4.9 H Baso % (Auto) 0.8 Neut # (Auto) 2300 Lymph # (Auto) 1300 [place] # (Auto) 600 Eos # (Auto) 200 Baso # (Auto) 0 Troponin I < 0.012 NT-Pro-B Natriuret Pep 72 PFSH Medical History (Updated 03/14/20 @ 06:18 by CRUZ Albarado) Acquired hypothyroidism Cervical arthritis COPD (chronic obstructive pulmonary disease) Dysthymia Essential hypertension Mixed hyperlipidemia Surgical History (Updated 03/14/20 @ 06:18 by CRUZ Albarado) History of hysterectomy Family History (Updated 03/14/20 @ 06:20 by CRUZ Albarado) Brother Diabetes mellitus Sister Diabetes mellitus Mother Diabetes mellitus Dementia Cancer Father Alcoholism Trauma Social History household members: none Smoking Status: Former smoker Discharge Assessment & Plan Assessment and Plan Assessment: 1. COPD exacerbation 2. Hypertension 3. Hyperlipidemia 4. Hypothyroid Plan of Treatment: Discharge home Follow-up with Dr. Torres as scheduled Discharge Plan Discharge Plan Patient Disposition: Home Discharge orders & Medications Prescriptions: New prednisone 20 mg Tablet 40 mg PO DAILY 4 Days RF: 0 Continued estradiol 1 mg tablet 1 mg PO DAILY Qty: 90 RF: 3 simvastatin 20 mg tablet 20 mg PO DAILY Qty: 90 RF: 3 levothyroxine [Synthroid] 75 mcg tablet 75 mcg PO QAM Qty: 90 RF: 3 losartan 50 mg tablet 50 mg PO DAILY Qty: 90 RF: 3 hydrochlorothiazide 12.5 mg tablet 12.5 mg PO DAILY Qty: 90 RF: 3 Anoro Ellipta 62.5-25 mcg/actuation blister with device 1 inhalation INHALATION DAILY Qty: 60 RF: 11 albuterol sulfate 90 mcg/actuation Aerosol Powdr Breath Activated 2 inh INHALATION Q4-6H PRN (Reason: Shortness Of Breath Or Wheezing) RF: 0 naproxen 250 mg Tablet 660 mg PO BID RF: 0 Follow up/Referrals: Devon Dong MD [Primary Care Provider] - Discharge Data Primary Care Provider: Devon Dong Attending Provider: Rafael Daily VTE Deep Vein Thrombosis/Pulmonary Embolism Present on Admission: No
--- NOTE | 2020-03-20 15:12 | PC.NURSE ---
Late Entry; NS infusion initiated 2/3 at 0.:39, stopped per provider order at 14:20.
== END 2020-03-15 18:29 | disposition home or self-care (01) ==
LOC: ED 03-14 01:59 → AC 03-14 02:02
PROVIDERS: Internal Medicine; Admitting Provider Nurse Practitioner Adult Health; Emergency Provider Emergency Medicine; PCP Student in an Organized Health Care Education/Training Program; Referring Provider Emergency Medicine; Visit Provider Nurse Practitioner Adult Health
DX: J44.1 Chronic obstructive pulmonary disease with (acute) exacerbation (principal); I10 Essential (primary) hypertension; E03.9 Hypothyroidism, unspecified; N17.9 Acute kidney failure, unspecified; E78.5 Hyperlipidemia, unspecified; Z20.822 Contact with and (suspected) exposure to COVID-19
CPT/HCPCS: 36415; 71045; 71275; 78452; 80048; 80053; 82550; 83605; 83735; 83880; 84484; 85025; 85379; 87635; 93005; 93017; 94150; 94762; 96360; 96361; 96372; 99283; C9803; G0378; A9502; J1650; Q9967

== ENCOUNTER → 2020-05-24 15:12 | Outpatient (CLI) | payer MEDICARE, SELFPAY ==
[2020-03-14 02:15] VITALS: BMI 25.0
== END ==
PROVIDERS: PCP Student in an Organized Health Care Education/Training Program; Visit Provider Student in an Organized Health Care Education/Training Program
DX: R35.0 Frequency of micturition (principal)
CPT/HCPCS: 87077; 87086; 87186

== ENCOUNTER → 2020-06-13 11:02 | Outpatient (CLI) | payer MEDICARE, SELFPAY ==
[2020-03-14 02:15] VITALS: BMI 25.0
[2020-06-13 11:47] LABS: COVID19 -Nasal RAPID Negative (Negative)
== END ==
PROVIDERS: PCP Student in an Organized Health Care Education/Training Program; Referring Provider Student in an Organized Health Care Education/Training Program; Visit Provider Student in an Organized Health Care Education/Training Program
DX: Z20.822 Contact with and (suspected) exposure to COVID-19 (principal)
CPT/HCPCS: 87635; C9803

== ENCOUNTER → 2020-06-13 13:00 | Outpatient (CLI) | payer MEDICARE, SELFPAY ==
[2020-03-14 02:15] VITALS: BMI 25.0
--- NOTE | 2020-06-20 09:20 | PM.PFT.1 ---
Pulmonary Function Test Referral & Results Date Patient Seen: 06/13/20 Requesting provider: Devon Dong Results: The spirometry demonstrates an FVC of 2.56 L which is 82% of predicted. The FEV1 was measured at 1.59 L which is 68% of predicted. The FEV1/FVC ratio was 62 which is 82% of predicted. Following the administration of bronchodilator there was no appreciable change. Lung volumes show an SVC of 2.85 L which is 95% of predicted. The diffusing capacity was measured at 14.20 which is 52% of predicted. No hemoglobin value was provided, so no correction for potential anemia could be made, if appropriate. The maximum voluntary ventilation was reduced Interpretation: This study demonstrates mild obstructive lung disease based on reduction FEV1 although FEV1/FVC ratio is relatively preserved, shape of flow volume loop also supports an element of obstructive lung disease Lung volumes are preserved There is also a notable reduction in diffusing capacity suggesting significant disease at the capillary alveolar level Clinical correlation is suggested
== END ==
PROVIDERS: PCP Student in an Organized Health Care Education/Training Program; Referring Provider Student in an Organized Health Care Education/Training Program; Visit Provider Student in an Organized Health Care Education/Training Program
DX: J44.9 Chronic obstructive pulmonary disease, unspecified (principal); Z20.822 Contact with and (suspected) exposure to COVID-19
CPT/HCPCS: 87635; 94060; 94726; 94729; C9803

== ENCOUNTER 2020-10-23 14:02 | Outpatient (RCR) | payer MEDICARE, SELFPAY ==
[2020-03-14 02:15] VITALS: BMI 25.0
== END 2020-10-23 16:02 ==
LOC: PUL 14:02
PROVIDERS: PCP Student in an Organized Health Care Education/Training Program; Referring Provider Student in an Organized Health Care Education/Training Program; Visit Provider Student in an Organized Health Care Education/Training Program
DX: J44.9 Chronic obstructive pulmonary disease, unspecified (principal)
CPT/HCPCS: G0424

== ENCOUNTER → 2020-12-21 10:44 | Outpatient (CLI) | payer MEDICARE, SELFPAY ==
[2020-03-14 02:15] VITALS: BMI 25.0
[2020-12-21] MEDS: COVID-19 VACC #3, MRNA(MOD) 50 MCG/0.25 ML VIAL IM (10:54)
== END ==
PROVIDERS: PCP Student in an Organized Health Care Education/Training Program; Visit Provider Internal Medicine
DX: Z23 Encounter for immunization (principal)
CPT/HCPCS: 0013A; 91301

== ENCOUNTER → 2022-02-26 10:58 | Outpatient (CLI) | payer MEDICARE, SELFPAY ==
[2020-03-14 02:15] VITALS: BMI 25.0
[2022-02-26 12:41] LABS: BUN Creatinine Ratio 20.7 (6-22); Blood Urea Nitrogen 17 mg/dL (7-17); Calcium 9.4 mg/dL (8.4-10.2); Carbon Dioxide 29 mmol/L (22-32); Chloride 100 mmol/L (98-107); Cholesterol 201 mg/dL (140-199); Estimated Glomerular Filt Rate > 60 mL/min (>60); Glucose 141 mg/dL (80-110); HDL Cholesterol 101 mg/dL (40-60); HEMOLYSIS < 15 (0-50); LDL Cholesterol Calculated 65 mg/dL (<100); Potassium 3.7 mmol/L (3.4-5.1); Sodium 138 mmol/L (137-145); Triglycerides 177 mg/dL (35-150)
[2022-02-26 13:08] LABS: TSH w/ Reflex to FT4 2.66 uIU/mL (0.47-4.68)
[2022-02-26 16:23] LABS: Vitamin D 25 Hydroxy (D3) 85.5 ng/mL (30.0-100.0)
[2022-02-27 20:26] LABS: Hep C Virus Ab w/Reflex Quant NEGATIVE s/c (NEGATIVE)
== END ==
PROVIDERS: PCP Student in an Organized Health Care Education/Training Program; Referring Provider Student in an Organized Health Care Education/Training Program; Visit Provider Student in an Organized Health Care Education/Training Program
DX: E03.9 Hypothyroidism, unspecified (principal); E55.9 Vitamin D deficiency, unspecified; Z11.59 Encounter for screening for other viral diseases; I10 Essential (primary) hypertension; Z79.1 Long term (current) use of non-steroidal anti-inflammatories (NSAID); E78.2 Mixed hyperlipidemia
CPT/HCPCS: 36415; 80048; 80061; 82306; 84443; 86803

== ENCOUNTER → 2022-03-04 10:31 | Outpatient (CLI) | payer MEDICARE, SELFPAY ==
[2020-03-14 02:15] VITALS: BMI 25.0
== END ==
PROVIDERS: PCP Student in an Organized Health Care Education/Training Program; Referring Provider Student in an Organized Health Care Education/Training Program; Visit Provider Student in an Organized Health Care Education/Training Program
DX: Z78.0 Asymptomatic menopausal state (principal); Z13.820 Encounter for screening for osteoporosis; M85.852 Other specified disorders of bone density and structure, left thigh
CPT/HCPCS: 77080

== ENCOUNTER → 2022-03-27 13:17 | Outpatient (CLI) | payer MEDICARE, SELFPAY ==
[2020-03-14 02:15] VITALS: BMI 25.0
--- NOTE | 2022-03-27 13:18 | DI.RAD.S_ITS ---
PROCEDURE: XR CHEST 2V INDICATIONS: COPD exacerbation TECHNIQUE: 2 views of the chest were acquired. COMPARISON: [facility], CR, XR CHEST 1V, 03/14/2020, 0:20. FINDINGS: Surgical changes and devices: None. Lungs and pleura: Lungs are clear. No pleural effusions or pneumothorax. Mediastinum: Mediastinal contours are normal. Heart size is normal. Bones and chest wall: No suspicious bony abnormalities. Soft tissues appear unremarkable. IMPRESSION: No acute cardiopulmonary disease. Dictated by: Freedom Greco M.D. on 03/27/2022 at 16:11 Approved by: Freedom Greco M.D. on 03/27/2022 at 16:11
== END ==
PROVIDERS: PCP Student in an Organized Health Care Education/Training Program; Referring Provider Student in an Organized Health Care Education/Training Program; Visit Provider Student in an Organized Health Care Education/Training Program
DX: J44.9 Chronic obstructive pulmonary disease, unspecified (principal); R05.9 Cough, unspecified
CPT/HCPCS: 71046

== ENCOUNTER 2022-06-18 15:02 | Emergency (ER) | payer MEDICARE, SELFPAY ==
[2020-03-14 02:15] VITALS: BMI 25.0
[2022-06-18] VITALS (15 sets, daily range): BP systolic 142–177; BP diastolic 71–96; PULSE 70–89; RESP 13–18; TEMP 36.3; O2SAT 90–99
[2022-06-18 15:48] LABS: Add Manual Diff / Slide Review NO; Basophils Absolute Auto 0 /uL (0-100); Basophils Percent Auto 0.3 % (0-2); Eosinophils Absolute Auto 0 /uL (0-450); Eosinophils Percent Auto 0.1 % (2-4); Hematocrit 41.6 % (36-46); Hemoglobin 14.7 g/dL (12.0-16.0); Lymphocytes Absolute Auto 700 /uL (1100-4500); Lymphocytes Percent Auto 8.4 % (25-40); Mean Corpuscular HGB Conc 35.3 % (30-36); Mean Corpuscular Hemoglobin 31.8 PG (26-34); Mean Corpuscular Volume 90.1 fL (80-100); Monocytes Absolute Auto 200 /uL (0-900); Neutrophils Absolute Auto 7100 /uL (1500-7000); Neutrophils Percent Auto 88.2 % (50-75); Platelet Count 273 X10^3/uL (150-400); Red Blood Cell Count 4.62 X10^6/uL (4.0-5.2); Red Cell Distribution Width 13.4 % (11.6-14.8); White Blood Cell Count 8.1 X10^3/uL (4.5-11.0)
[2022-06-18 15:58] LABS: Alanine Aminotransferase 27 IU/L (<35); Albumin 4.1 g/dL (3.5-5.0); Albumin Globulin Ratio 1.2 (1.0-2.8); Alkaline Phosphatase 88 U/L (38-126); Aspartate Aminotransferase 33 IU/L (14-36); BUN Creatinine Ratio 19.5 (6-22); Bilirubin Total 0.8 mg/dL (0.2-1.3); Blood Urea Nitrogen 17 mg/dL (7-17); Calcium 8.7 mg/dL (8.4-10.2); Carbon Dioxide 28 mmol/L (22-32); Chloride 101 mmol/L (98-107); Estimated Glomerular Filt Rate > 60 mL/min (>60); Globulin 3.3 g/dL (1.7-4.1); Glucose 202 mg/dL (80-110); HEMOLYSIS 29 (0-50); Lipase 25 U/L (23-300); Potassium 3.8 mmol/L (3.4-5.1); Sodium 137 mmol/L (137-145); Total Protein 7.4 g/dL (6.3-8.2)
[2022-06-18 16:19] LABS: Bacteria Urine Few (2-10); Culture Indicated Urine Cult Not Indicated; RBC Urine 5-10/HPF (0-5/HPF); Squamous Epithelial Cell Urine 1-5 /HPF (0-5/HPF); WBC Urine 0-1/HPF (0-5/HPF)
[2022-06-18] MEDS: MORPHINE 2 MG/ML INJ IV (17:38)
[2022-06-18] MEDS: ONDANSETRON 4 MG/2 ML INJ IV (17:38)
--- NOTE | 2022-06-18 18:09 | ED.GENADULT ---
HPI - General Adult General Chief complaint: Abdominal Pain Stated complaint: Abd pain, r flank pain, nausea Time Seen by Provider: 06/18/22 18:06 Source: patient Mode of arrival: Ambulatory History of Present Illness HPI narrative: 77-year-old woman with a history of COPD, hypothyroidism, hypertension, hyperlipidemia and history of prior kidney stones presents with abdominal pain since waking this morning radiating to the right flank with urgency with urination, now radiating down into the lower pelvis in the left lower quadrant. She does not describe fevers or dysuria otherwise. She states she was in her usual state of excellent health until this morning. She feels that her bowel movements have been normal and regular. Related Data Home Medications Medication Instructions Recorded Confirmed albuterol sulfate 90 mcg/actuation 2 inh inhalation Q4-6H PRN 03/14/20 03/27/22 breath activated powder inhaler Shortness Of Breath Or Wheezing cholecalciferol (vitamin D3) 125 125 mcg PO BID 03/27/22 03/27/22 mcg (5,000 unit) tablet (Vitamin D3) Previous Rx's Medication Instructions Recorded celecoxib 200 mg capsule 200 mg PO BID #180 caps 02/26/22 cyclobenzaprine 10 mg tablet 10 mg PO BEDTIME PRN muscle spasm 02/26/22 #90 tabs hydrochlorothiazide 12.5 mg tablet 12.5 mg PO DAILY #90 tabs 02/26/22 levothyroxine 75 mcg tablet 75 mcg PO QAM #90 tabs 02/26/22 (Synthroid) losartan 50 mg tablet 50 mg PO DAILY #90 tabs 02/26/22 simvastatin 20 mg tablet 20 mg PO BEDTIME #90 tabs 02/26/22 umeclidinium 62.5 mcg-vilanterol 1 inh inhalation DAILY #60 ea 02/26/22 25 mcg/actuation powdr for inhalation (Anoro Ellipta) estradiol 0.5 mg tablet 0.5 mg PO DAILY #90 tabs 06/10/22 oxycodone-acetaminophen 5 mg-325 1 tab PO Q6H PRN pain #14 tabs 06/18/22 mg tablet tamsulosin 0.4 mg capsule (Flomax) 0.4 mg PO DAILY #30 caps 06/18/22 Allergies Allergy/AdvReac Type Severity Reaction Status Date / Time lisinopril Allergy Mild cough Verified 03/27/22 12:59 Review of Systems Review of Systems Narrative: Pertinent positive and negative findings as per HPI Patient History Medical History Acquired hypothyroidism Cervical arthritis COPD (chronic obstructive pulmonary disease) Essential hypertension Mixed hyperlipidemia Osteoarthritis involving multiple joints on both sides of body Surgical History History of hysterectomy Family History Brother Diabetes mellitus Sister Diabetes mellitus Mother Diabetes mellitus Dementia Cancer Father Alcoholism Trauma Social History household members: none Smoking Status: Former smoker Smoking Status: Former smoker alcohol intake frequency: holidays/special occasions only Substance Use Type: marijuana Exam Initial Vital Signs Initial Vital Signs: Vital Signs Temperature 97.3 F L 06/18/22 15:23 Pulse Rate 70 06/18/22 15:23 Respiratory Rate 18 06/18/22 15:23 Blood Pressure 142/96 H 06/18/22 15:23 Pulse Oximetry 97 06/18/22 15:23 Oxygen Delivery Method Room Air 06/18/22 15:23 General: Healthy appearing, in no acute distress. Able to give a complete and coherent history. Well-nourished well-developed HEENT: Moist mucous membranes, normal sclera with reactive pupils, Neck: No JVD, supple Respiratory: Lungs are clear to auscultation, no wheezing no rales no rhonchi. Full and symmetrical air movement Cardiac: Regular rate and rhythm no murmurs no bruits Abdomen: Soft, mild tenderness in the pelvic area and left lower quadrant without rebound or guarding, good bowel tones, no flank pain Skin: Warm and dry, no rashes Neurologic: Grossly neurologically intact with no obvious asymmetries or abnormalities Extremities: No trauma, well perfused Psych: Cooperative, appropriate insight and affect Course Orders Ordered: ED Orders 06/18/22 15:35 Complete Blood Count AUTO DIFF Stat Comprehensive Metabolic Panel Stat Lipase Stat 06/18/22 15:42 Urine Microscopic Stat 06/18/22 19:11 EKG-12 Lead Stat 06/18/22 19:15 CT abdomen pelvis w con Stat Hydromorphone HCl (Hydromorphone 0.5 Mg Inj) 0.5 mg IV Q15MIN PRN PRN Reason: Pain, Last Admin: 06/18/22 20:21 Dose: 0.5 mg Documented By: ELAINE Ondansetron HCl (Ondansetron 4 Mg Odt) 4 mg PO NOW PRN PRN Reason: Nausea And Vomiting Ondansetron HCl (Ondansetron 4 Mg/2 Ml Inj) 4 mg IV NOW PRN PRN Reason: Nausea And Vomiting Last Admin: 06/18/22 17:38 Dose: 4 mg Documented By: MARCO A Discontinued Medications Morphine Sulfate (Morphine 2 Mg/Ml Inj) 2 mg IV NOW ONE Stop: 06/18/22 17:34 Last Admin: 06/18/22 17:38 Dose: 2 mg Documented By: MARCO A Vital Signs Vital signs: Vital Signs - 8 hr 06/18/22 15:23 06/18/22 17:24 06/18/22 17:25 Temperature 97.3 F L Pulse Rate 70 82 84 Respiratory Rate 18 Blood Pressure 142/96 H Pulse Oximetry 97 98 98 Oxygen Delivery Method Room Air Oxygen Flow Rate 06/18/22 17:25 06/18/22 17:30 06/18/22 17:30 Temperature Pulse Rate 87 Respiratory Rate Blood Pressure 175/79 H 171/71 H Pulse Oximetry 99 Oxygen Delivery Method Oxygen Flow Rate 06/18/22 18:00 06/18/22 18:00 06/18/22 18:30 Temperature Pulse Rate 88 84 Respiratory Rate Blood Pressure 163/75 H Pulse Oximetry 97 90 L Oxygen Delivery Method Oxygen Flow Rate 06/18/22 19:00 06/18/22 19:14 06/18/22 19:14 Temperature Pulse Rate 83 84 Respiratory Rate 13 Blood Pressure 177/84 H Pulse Oximetry 98 98 Oxygen Delivery Method Nasal Cannula Oxygen Flow Rate 2 06/18/22 19:30 06/18/22 20:24 06/18/22 20:25 Temperature Pulse Rate 89 Respiratory Rate Blood Pressure 164/81 H Pulse Oximetry 95 97 Oxygen Delivery Method Oxygen Flow Rate 06/18/22 20:25 Temperature Pulse Rate 89 Respiratory Rate Blood Pressure Pulse Oximetry 96 Oxygen Delivery Method Nasal Cannula Oxygen Flow Rate 2 Medical Decision Making Lab Data 06/18/22 15:35 06/18/22 15:35 Labs: Lab Results 05/10/23 05/10/23 05/10/23 Range/Units 15:35 15:35 15:42 WBC 8.1 (4.5-11.0) X10^3/uL RBC 4.62 (4.0-5.2) X10^6/uL Hgb 14.7 (12.0-16.0) g/dL Hct 41.6 (36-46) % MCV 90.1 (80-100) fL MCH 31.8 (26-34) PG MCHC 35.3 (30-36) % RDW 13.4 (11.6-14.8) % Plt Count 273 (150-400) X10^3/uL Neut % (Auto) 88.2 H (50-75) % Lymph % (Auto) 8.4 L (25-40) % [place] % (Auto) 3.0 (3-14) % Eos % (Auto) 0.1 L (2-4) % Baso % (Auto) 0.3 (0-2) % Neut # (Auto) 7100 H (3174-1940) /uL Lymph # (Auto) 700 L (1432-6736) /uL [place] # (Auto) 200 (0-900) /uL Eos # (Auto) 0 (0-450) /uL Baso # (Auto) 0 (0-100) /uL Sodium 137 (137-145) mmol/L Potassium 3.8 (3.4-5.1) mmol/L Chloride 101 (98-107) mmol/L Carbon Dioxide 28 (22-32) mmol/L BUN 17 (7-17) mg/dL Creatinine 0.87 (0.52-1.04) mg/dL Estimated GFR > 60 (>60) mL/min BUN/Creatinine Ratio 19.5 (6-22) Glucose 202 H (80-110) mg/dL Calcium 8.7 (8.4-10.2) mg/dL Total Bilirubin 0.8 (0.2-1.3) mg/dL AST 33 (14-36) IU/L ALT 27 (<35) IU/L Alkaline Phosphatase 88 (38-126) U/L Total Protein 7.4 (6.3-8.2) g/dL Albumin 4.1 (3.5-5.0) g/dL Globulin 3.3 (1.7-4.1) g/dL Albumin/Globulin Ratio 1.2 (1.0-2.8) Lipase 25 (23-300) U/L Urine RBC 5-10/hpf H (0-5/HPF) Urine WBC 0-1/hpf (0-5/HPF) Ur Squamous Epith Cells 1-5 /hpf (0-5/HPF) Urine Bacteria Few (2-10) H (None) Ur Culture Indicated? Cult not indicated Urine Dip Bedside Urine Glucose Negative Bedside Urine Bilirubin - Negative Bedside Urine Ketone ++ 40 Urine Specific [place] 1.030 Bedside Urine Occult Blood +++ Bedside Urine pH 5.5 Bedside Urine Protein +/- 15 Bedside Urine Urobilinogen - Negative Bedside Urine Nitrite - Negative Bedside Urine Leukocytes - Negative Esterase Point of care testing: Urine Dip Bedside Urine Glucose Negative Bedside Urine Bilirubin - Negative Bedside Urine Ketone ++ 40 Urine Specific [place] 1.030 Bedside Urine Occult Blood +++ Bedside Urine pH 5.5 Bedside Urine Protein +/- 15 Bedside Urine Urobilinogen - Negative Bedside Urine Nitrite - Negative Bedside Urine Leukocytes - Negative Esterase MDM Narrative Medical decision making narrative: CC: Abdominal and flank pain, sitting acute problem uncertain prognosis Complicating co-morbidities: COPD. She notes she had a kidney stone that did need lithotripsy approximately 10 years ago Data collected from: patient, Social determinants of health that may influence the patients condition: Lives independently and does live on [facility] making access to care a bit more challenging Medical records reviewed: Primary care notes from March 27, 2022 Differential considered: Pyelonephritis, urinary tract infection, appendicitis, diverticulitis, kidney stone, obstructing mass or tumor Exam documented above, pertinent findings include: Mild low pelvic pain. Had been complaining of right-sided pain but I am a physical exam she is having left lower quadrant tenderness. No rebound or guarding Lab Test results independently reviewed as above. Pertinent findings: CBC is unremarkable with no significant leukocytosis or anemia Chemistries are reassuring with creatinine appropriate at 0.87 Urine shows red blood cells occasional bacteria no white blood cells Imaging studies independently reviewed: CT scan of the abdomen shows severe right hydronephrosis with moderate perinephric edema and a 5 x 6 x 5 mm stone in the distal right ureter. Treatments: IV fluids, parenteral narcotics, oral tamsulosin Discussion: Patient is re-evaluated. Her pain is significantly improved. She is wondering if discharge can be facilitated. There is no evidence of infection or acute renal failure. Pain is adequately controlled. Will place her on tamsulosin and will ask her to follow-up with urology. Explained reasons to return to the emergency department and she is safe for discharge home Discharge Plan Departure Patient Disposition: Home Clinical Impression: Ureterolithiasis Hydronephrosis Qualifiers: Hydronephrosis type: with renal calculous obstruction Qualified Code(s): N13.2 - Hydronephrosis with renal and ureteral calculous obstruction Instructions: DI for Kidney Stones Activity Restrictions/Additional Instructions: Thank you for coming in today You do have an approximately half a cm size kidney stone in your right ureter very close to your bladder. It is blocking the right side which is causing some of your pain. There is no evidence of acute kidney failure or infection. With your pain and nausea controlled, discharge home is going to be appropriate however you are going to need outpatient follow-up with our Urology Clinic. For pain control please do continue the celecoxib and you can use additional Tylenol and for worsening pain you can use a Percocet. When you do choose to use the narcotic, please remember that it will make you constipated and I would recommend adding stool softener any day that narcotic is used . I am also going to give you a prescription for tamsulosin/Flomax. This can sometimes help the ureter allow larger stones to pass. If the stone passes (and it is large enough you would notice it in the toilet) you do not need to continue the tamsulosin Please call [facility] at [phone] an explain that you are in the emergency department, you have a 5 mm stone in your right ureter and need to be seen in follow-up. If you find that you are developing fevers, the pain can not be controlled or your developing new symptoms, you need to return to the emergency department. Prescriptions: New tamsulosin [Flomax] 0.4 mg capsule 0.4 mg PO DAILY Qty: 30 0RF oxycodone-acetaminophen 5-325 mg tablet 1 tab PO Q6H PRN (Reason: pain) Qty: 14 0RF No Action estradiol 0.5 mg tablet 0.5 mg PO DAILY Qty: 90 3RF Rx Instructions: off 5 days; repeat cycle cholecalciferol (vitamin D3) [Vitamin D3] 125 mcg (5,000 unit) tablet 125 mcg PO BID hydrochlorothiazide 12.5 mg tablet 12.5 mg PO DAILY Qty: 90 3RF losartan 50 mg tablet 50 mg PO DAILY Qty: 90 3RF simvastatin 20 mg tablet 20 mg PO BEDTIME Qty: 90 3RF levothyroxine [Synthroid] 75 mcg tablet 75 mcg PO QAM Qty: 90 3RF celecoxib 200 mg capsule 200 mg PO BID Qty: 180 3RF cyclobenzaprine 10 mg tablet 10 mg PO BEDTIME PRN (Reason: muscle spasm) Qty: 90 3RF Anoro Ellipta 62.5-25 mcg/actuation blister with device 1 inh INHALATION DAILY Qty: 60 11RF albuterol sulfate 90 mcg/actuation Aerosol Powdr Breath Activated 2 inh INHALATION Q4-6H PRN (Reason: Shortness Of Breath Or Wheezing) Referrals: Devon Dong MD [Primary Care Provider] - Stand Alone Forms: Patient Portal/API
--- NOTE | 2022-06-18 19:15 | DI.CT.S_ITS ---
PROCEDURE: CT ABDOMEN PELVIS W CON INDICATIONS: acute abdominal pain, now in LLQ TECHNIQUE: After the administration of intravenous contrast, axial sections acquired from the lung bases to the pubic symphysis. Coronal and sagittal reformats were performed. For radiation dose reduction, the following was used: automated exposure control, adjustment of mA and/or kV according to patient size. COMPARISON: , CT, CT ANGIO CHEST PE PROTOCOL, 03/14/2020, 14:21. FINDINGS: Image quality: Good Lower chest: There is a ground-glass nodule in the right lower lobe measuring 6-7 mm (5/8). Nonspecific mild distal esophageal wall thickening. There are annular calcifications around the heart. Solid organs: Suspected hepatic steatosis. There is a 8 mm left lobe hypoattenuating hepatic lesion, stable from 2020. Gallbladder is unremarkable. No pathologic dilation of the biliary tree or pancreatic duct. No splenomegaly. There are splenic granulomas. No adrenal nodules. Severe right hydronephrosis. There is moderate perinephric edema, as well as of the frayed nephrogram. In the right distal ureter, there is a calcified stone measuring 5 x 6 x 5 mm. Vessels and lymph nodes: The main portal vein is patent. No abdominal aortic aneurysm. No pathologic adenopathy by size criteria. Bowel and peritoneum: No evidence of small bowel obstruction. No drainable abscess or pathologic ascites. Colonic diverticulosis. Body wall: Unremarkable Pelvis: Bladder is under distended. Hysterectomy. Bones: No acute or suspicious osseous finding. There are degenerative changes. IMPRESSION: Severe right hydronephrosis and moderate edema with obstructive uropathy. 5 x 6 x 5 mm obstructing distal ureter stone is present. Correlate with urinalysis for superimposed infection. Consider six-month follow-up for the right lower lobe 8 mm ground-glass nodule (5/8). Other stable/incidental findings above. Dictated by: Pierce Ricketts M.D. on 06/18/2022 at 20:16 Approved by: Pierce Ricketts M.D. on 06/18/2022 at 20:23
[2022-06-18] MEDS: HYDROMORPHONE 0.5 MG INJ IV (20:21)
[2022-06-18] MEDS: TAMSULOSIN 0.4 MG CAPSULE PO (22:06)
[2022-06-18] MEDS: OXYCODONE/ACETAMINOPHEN 5/325 TABLET 1 TAB PO (22:06)
[2022-06-18] MEDS: OXYCODONE/APAP 5/325 PREPACK 1 BOTTLE MISC (22:06)
== END 2022-06-18 22:16 | disposition home or self-care (01) ==
PROVIDERS: Emergency Medicine; Emergency Provider Emergency Medicine; PCP Student in an Organized Health Care Education/Training Program
DX: N20.1 Calculus of ureter (principal); N13.30 Unspecified hydronephrosis; R10.9 Unspecified abdominal pain
CPT/HCPCS: 36415; 74177; 80053; 81003; 81015; 83690; 85025; 93005; 96374; 96375; 99284; J1170; J2270; J2405; Q9967

== ENCOUNTER → 2022-10-07 16:09 | Outpatient (CLI) | payer MEDICARE, SELFPAY ==
[2020-03-14 02:15] VITALS: BMI 25.0
== END ==
PROVIDERS: PCP Student in an Organized Health Care Education/Training Program; Visit Provider Physician Assistant
DX: N39.0 Urinary tract infection, site not specified (principal)
CPT/HCPCS: 87077; 87086; 87186

== ENCOUNTER → 2022-10-25 08:39 | Outpatient (CLI) | payer MEDICARE, SELFPAY ==
[2020-03-14 02:15] VITALS: BMI 25.0
== END ==
PROVIDERS: PCP Student in an Organized Health Care Education/Training Program; Visit Provider Nurse Practitioner Family
DX: N39.0 Urinary tract infection, site not specified (principal)
CPT/HCPCS: 87077; 87086; 87186

== ENCOUNTER → 2022-11-10 11:39 | Outpatient (CLI) | payer MEDICARE, SELFPAY ==
[2020-03-14 02:15] VITALS: BMI 25.0
== END ==
PROVIDERS: PCP Student in an Organized Health Care Education/Training Program; Visit Provider Physician Assistant
DX: R30.0 Dysuria (principal)
CPT/HCPCS: 87077; 87086; 87186

== ENCOUNTER → 2023-03-19 16:50 | Outpatient (CLI) | payer MEDICARE, SELFPAY ==
[2020-03-14 02:15] VITALS: BMI 25.0
[2023-03-19 17:47] LABS: Hemoglobin 14.3 g/dL (12.0-16.0); Mean Corpuscular HGB Conc 34.9 % (30-36); Mean Corpuscular Hemoglobin 31.2 PG (26-34); Mean Corpuscular Volume 89.4 fL (80-100); Platelet Count 262 X10^3/uL (150-400); Red Blood Cell Count 4.59 X10^6/uL (4.0-5.2); Red Cell Distribution Width 13.2 % (11.6-14.8); White Blood Cell Count 4.9 X10^3/uL (4.5-11.0)
[2023-03-19 18:28] LABS: Alanine Aminotransferase 20 IU/L (<35); Albumin 4.1 g/dL (3.5-5.0); Albumin Globulin Ratio 1.2 (1.0-2.8); Alkaline Phosphatase 84 U/L (38-126); Aspartate Aminotransferase 26 IU/L (14-36); BUN Creatinine Ratio 24.3 (6-22); Bilirubin Total 0.5 mg/dL (0.2-1.3); Blood Urea Nitrogen 18 mg/dL (7-17); Calcium 9.2 mg/dL (8.4-10.2); Carbon Dioxide 31 mmol/L (22-32); Chloride 99 mmol/L (98-107); Cholesterol 204 mg/dL (140-199); Estimated Glomerular Filt Rate > 60 mL/min (>60); Globulin 3.5 g/dL (1.7-4.1); Glucose 172 mg/dL (80-110); HDL Cholesterol 85 mg/dL (40-60); HEMOLYSIS < 15 (0-50); LDL Cholesterol Calculated 86 mg/dL (<100); Potassium 3.5 mmol/L (3.4-5.1); Sodium 138 mmol/L (137-145); Total Protein 7.6 g/dL (6.3-8.2); Triglycerides 167 mg/dL (35-150)
[2023-03-19 18:55] LABS: TSH w/ Reflex to FT4 2.36 uIU/mL (0.47-4.68)
[2023-03-22 05:11] LABS: x Labcorp Estim. Avg Glu (eAG) 154 mg/dL (.)
== END ==
PROVIDERS: PCP Internal Medicine; Referring Provider Internal Medicine; Visit Provider Internal Medicine
DX: E03.9 Hypothyroidism, unspecified (principal); I10 Essential (primary) hypertension; E78.2 Mixed hyperlipidemia; R73.01 Impaired fasting glucose
CPT/HCPCS: 36415; 80053; 80061; 83036; 84443; 85027

== ENCOUNTER → 2023-05-20 15:00 | Outpatient (CLI) | payer MEDICARE, SELFPAY ==
[2020-03-14 02:15] VITALS: BMI 25.0
[2023-05-20 17:13] LABS: Bilirubin Urine UA NEGATIVE (NEGATIVE); Color Urine UA YELLOW; Glucose Urine UA NEGATIVE (Negative); Ketones Urine UA NEGATIVE (NEGATIVE); Leukocyte Esterase Urine UA 3+ (NEGATIVE); Nitrite Urine UA POSITIVE (Negative); Occult Blood Urine UA TRACE-INTACT (Negative); Protein Urine UA NEGATIVE (Negative); Specific Gravity Urine UA 1.025 (1.000-1.035); Urobilinogen Urine UA 0.2 E.U./dL (0.2)
[2023-05-20 17:55] LABS: Appearance Urine UA SL CLOUDY
[2023-05-20 18:02] LABS: Bacteria Urine Many (>30); RBC Urine None Seen (0-5/HPF); Squamous Epithelial Cell Urine 0-1 /HPF (0-5/HPF); Urine Volume 10mL (spun); WBC Urine 30-100/HPF (0-5/HPF)
== END ==
PROVIDERS: PCP Internal Medicine; Visit Provider Nurse Practitioner Family
DX: R30.9 Painful micturition, unspecified (principal)
CPT/HCPCS: 81001; 87077; 87086; 87186

== ENCOUNTER → 2023-06-02 13:28 | Outpatient (CLI) | payer MEDICARE, SELFPAY ==
[2020-03-14 02:15] VITALS: BMI 25.0
== END ==
PROVIDERS: PCP Internal Medicine; Visit Provider Physician Assistant Surgical
DX: R30.0 Dysuria (principal)
CPT/HCPCS: 87077; 87086; 87186

== ENCOUNTER → 2023-07-03 12:40 | Outpatient (CLI) | payer MEDICARE, SELFPAY ==
[2020-03-14 02:15] VITALS: BMI 25.0
--- NOTE | 2023-07-03 12:42 | DI.MG.S_ITS ---
BILATERAL DIGITAL SCREENING MAMMOGRAM 3D/2D WITH CAD: 07/03/2023 CLINICAL: Routine screening. Comparison is made to exams dated: 10/22/2019 mammogram - [facility], 02/17/2017 mammogram, and 07/13/2014 mammogram - [facility]. Both breasts are heterogeneously dense, which may obscure small masses (category c / 51-75% glandular tissue). Current study was also evaluated with a Computer Aided Detection (CAD) system. There are benign vascular calcifications in both breasts. No significant masses, calcifications, or other findings are seen in either breast. There has been no significant interval change. IMPRESSION: BENIGN There is no mammographic evidence of malignancy. A 1 year screening mammogram is recommended. Based on the Tyrer Cuzick model (a risk assessment model) the patient's lifetime risk is 3.0% and her 10 year risk is 0.0%. According to the ACR, ACS, and NCCN guidelines, an annual breast MRI exam along with mammogram is recommended if the patient's lifetime risk is 20% or greater. This exam was interpreted at Station ID: [id number]. NOTE: For mammograms, a report in lay terms will be sent to the patient. Approximately 15% of breast malignancies will not be visualized mammographically. In the management of a palpable breast mass, a negative mammogram must not discourage biopsy of a clinically suspicious lesion. Electronically Signed By: Jose abarca/eulalia:07/03/2023 16:33:45 letter sent: Normal Exam ACR BI-RADS Category 2: Benign Finding(s) 3342F
== END ==
PROVIDERS: PCP Internal Medicine; Referring Provider Internal Medicine; Visit Provider Internal Medicine
DX: Z12.31 Encounter for screening mammogram for malignant neoplasm of breast (principal); R92.333 Mammographic heterogeneous density, bilateral breasts
CPT/HCPCS: 77063; 77067

== ENCOUNTER → 2023-08-03 13:04 | Outpatient (CLI) | payer MEDICARE, SELFPAY ==
[2020-03-14 02:15] VITALS: BMI 25.0
[2023-08-03 14:10] LABS: BUN Creatinine Ratio 22.6 (6-22); Blood Urea Nitrogen 19 mg/dL (7-17); Calcium 8.5 mg/dL (8.4-10.2); Carbon Dioxide 31 mmol/L (22-32); Chloride 103 mmol/L (98-107); Estimated Glomerular Filt Rate > 60 mL/min (>60); Glucose 144 mg/dL (80-110); HEMOLYSIS < 15 (0-50); Potassium 3.5 mmol/L (3.4-5.1); Sodium 137 mmol/L (137-145)
[2023-08-03 14:13] LABS: Hemoglobin A1C% w Est Avg Glu 6.4 % (4.0-6.0)
[2023-08-03 15:24] LABS: Creatinine Urine Random 52.67 mg/dL
[2023-08-03 15:32] LABS: Microalbumin Urine Random < 0.6 mg/dL (0-1.6)
== END ==
PROVIDERS: PCP Internal Medicine; Referring Provider Internal Medicine; Visit Provider Internal Medicine
DX: E11.42 Type 2 diabetes mellitus with diabetic polyneuropathy (principal)
CPT/HCPCS: 36415; 80048; 82043; 82570; 83036

== ENCOUNTER → 2023-12-09 10:52 | Outpatient (CLI) | payer MEDICARE, SELFPAY ==
[2020-03-14 02:15] VITALS: BMI 25.0
--- NOTE | 2023-12-09 10:53 | DI.RAD.S_ITS ---
PROCEDURE: XR CHEST 2V INDICATIONS: Cough TECHNIQUE: 2 views of the chest were acquired. COMPARISON: [facility], CR, XR CHEST 2V, 03/27/2022, 14:25. [facility], CR, XR CHEST 1V, 03/14/2020, 0:20. FINDINGS: Surgical changes and devices: None. Lungs and pleura: Lungs are clear. No pleural effusions or pneumothorax. Mediastinum: Mediastinal contours are normal. Heart size is normal. Bones and chest wall: No suspicious bony abnormalities. Soft tissues appear unremarkable. IMPRESSION: No acute cardiopulmonary abnormality is seen. Dictated by: Rico Lee M.D. on 12/09/2023 at 11:45 Approved by: Rico Lee M.D. on 12/09/2023 at 11:45
== END ==
PROVIDERS: PCP Internal Medicine; Referring Provider Nurse Practitioner Family; Visit Provider Nurse Practitioner Family
DX: R05.9 Cough, unspecified (principal)
CPT/HCPCS: 71046

== ENCOUNTER → 2024-03-23 11:18 | Outpatient (CLI) | payer MEDICARE, SELFPAY ==
[2020-03-14 02:15] VITALS: BMI 25.0
[2024-03-23 12:04] LABS: Aspartate Aminotransferase 38 IU/L (14-36); BUN Creatinine Ratio 19.6 (6-22); Blood Urea Nitrogen 18 mg/dL (7-17); Calcium 9.1 mg/dL (8.4-10.2); Carbon Dioxide 28 mmol/L (22-32); Chloride 101 mmol/L (98-107); Cholesterol 201 mg/dL (140-199); Estimated Glomerular Filt Rate > 60 mL/min (>60); Glucose 125 mg/dL (80-110); HDL Cholesterol 79 mg/dL (40-60); HEMOLYSIS < 15 (0-50); LDL Cholesterol Calculated 84 mg/dL (<100); Potassium 3.3 mmol/L (3.4-5.1); Sodium 137 mmol/L (137-145); Triglycerides 191 mg/dL (35-150)
[2024-03-23 12:07] LABS: Hemoglobin A1C% w Est Avg Glu 6.8 % (4.0-6.0)
[2024-03-23 12:39] LABS: TSH w/ Reflex to FT4 2.42 uIU/mL (0.47-4.68)
== END ==
PROVIDERS: PCP Internal Medicine; Referring Provider Internal Medicine; Visit Provider Internal Medicine
DX: E11.69 Type 2 diabetes mellitus with other specified complication (principal); E78.2 Mixed hyperlipidemia; E78.5 Hyperlipidemia, unspecified; E03.9 Hypothyroidism, unspecified
CPT/HCPCS: 36415; 80048; 80061; 83036; 84443; 84450

== ENCOUNTER → 2024-03-25 14:03 | Outpatient (CLI) | payer MEDICARE, SELFPAY ==
[2020-03-14 02:15] VITALS: BMI 25.0
[2024-03-25 19:46] LABS: Creatinine Urine Random 68.76 mg/dL
[2024-03-25 19:53] LABS: Microalbumin Urine Random 0.7 mg/dL (0-1.6)
[2024-03-28 12:09] LABS: Fecal Immunochemical Test Negative (Negative)
== END ==
PROVIDERS: PCP Internal Medicine; Referring Provider Internal Medicine; Visit Provider Internal Medicine
DX: E11.69 Type 2 diabetes mellitus with other specified complication (principal); E78.5 Hyperlipidemia, unspecified; E78.2 Mixed hyperlipidemia; Z12.11 Encounter for screening for malignant neoplasm of colon
CPT/HCPCS: 82043; 82274; 82570

== ENCOUNTER 2024-03-31 12:30 | Outpatient (RCR) | payer MEDICARE, SELFPAY ==
[2020-03-14 02:15] VITALS: BMI 25.0
--- NOTE | 2024-02-29 12:37 | RT ---
pt needed training on spacer and med use
== END 2024-03-31 14:30 ==
LOC: PUL 12:30
PROVIDERS: PCP Internal Medicine; Referring Provider Internal Medicine Pulmonary Disease; Visit Provider Internal Medicine Pulmonary Disease
DX: J43.2 Centrilobular emphysema (principal)
CPT/HCPCS: G0237; G0238

== ENCOUNTER → 2024-09-15 14:48 | Outpatient (CLI) | payer MEDICARE, SELFPAY ==
[2020-03-14 02:15] VITALS: BMI 25.0
[2024-09-15 15:52] LABS: Hemoglobin A1C% w Est Avg Glu 6.3 % (4.0-6.0)
[2024-09-15 15:56] LABS: Blood Urea Nitrogen 21 mg/dL (7-17); Calcium 9.2 mg/dL (8.4-10.2); Carbon Dioxide 29 mmol/L (22-32); Chloride 101 mmol/L (98-107); Estimated Glomerular Filt Rate > 60 mL/min (>60); Glucose 121 mg/dL (70-99); HEMOLYSIS < 15 (0-50); Potassium 3.5 mmol/L (3.4-5.1); Sodium 138 mmol/L (137-145)
== END ==
LOC: LAB 14:50
PROVIDERS: PCP Internal Medicine; Referring Provider Internal Medicine; Visit Provider Internal Medicine
DX: E11.69 Type 2 diabetes mellitus with other specified complication (principal); E78.5 Hyperlipidemia, unspecified
CPT/HCPCS: 36415; 80048; 83036

== ENCOUNTER → 2024-09-28 08:40 | Outpatient (CLI) | payer MEDICARE, SELFPAY ==
[2020-03-14 02:15] VITALS: BMI 25.0
--- NOTE | 2024-10-25 15:51 | DIAB.MNT ---
Initial Diabetes Medical Nutrition Therapy Assessment Name: Anthony Mitchell Date: 09/28/24 Time: Dx: Type II Diabetes Provider: Kelly Preferred Learning Style: Ahmet Cruz presents for initial Dm visit. Recent hgA1c of 6.3% 09/2024. Endorses FH of Dm with mother, brother, and sister. Takes Jardiance. Denies any UTI or genital infections. Does endorse feeling tender in the area though. States she changed her whole diet starting last May, which she reports was difficult. Does not generally like meat, but has increased intake. Before most of her protein was from pb, eggs, beans. Trying to lose wt, down 11# since May 2024. Endorses neuropathy in LE. States she has a sweet tooth, which is extremely hard. Has questions about protein recs. Feet: Does not check daily Eye: UTD Dental: not UTD Diet Recall: 715am: yogurt with granola and water OR cereal and amharic muffin with honey 1030a: small fruit 1p: taco salad 5p: egg salad sandwich on ww thins 8p: corn on the joe water diet soda Anthropometrics: Ht: 65 Wt: 153# 09/2024 Reports 149# 10/2024 Personal goal: 135# reported Physical Activity: gym less lately due to IT band pain. usually goes 2x per week. Currently walks 2x per week for 30 min. Self-Monitoring Blood Glucose: Checks FBG, usually <120mg/dl, in goal. Previous CGM x 14 days but felt it didn't match with finger sticks. Endorses some 2 hour pc: 135, 158, 142mg/dl. HS readings reported: 96, 131. 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 Essential hypertension Frequent urinary tract infections GERD (gastroesophageal reflux disease) History of kidney stones Menopausal syndrome Mixed hyperlipidemia Nocturnal hypoxemia Osteoarthritis involving multiple joints on both sides of body Overweight Polyneuropathy, unspecified Primary lung adenocarcinoma Type 2 diabetes mellitus with polyneuropathy Nutrition Rx: Carbohydrates: Meal:30-45g Snack:15-30g Protein: 60-70g per day Nutrition Diagnosis: - Nutrition and food related knowledge deficit r/t no previous DM education/MNT aeb pt report Intervention: This participant was very receptive. Provided appropriate educational handouts. Discussed the following topics: Completed intake assessment. HgA1c and rationale for goal Self-monitoring and BG goals and review of current readings Plate Method, impact of macronutrients on blood sugar, meal timing, carbohydrate counting, pairing macronutrients and spreading out carbohydrates for better blood glucose management Recommended servings for carbohydrates and protein at meals and snacks Brainstormed appropriate meal/snack ideas based on food preferences Role of physical activity and personal goals Reducing DM complications SGLT2i benefits and SE Created SMART goals for patient self-care and success. Goals: Consider cleansing genitals after urination to reduce sugar in the area Restart gym safely Follow-up: IVAN YUEN follow-up offered, however pt would like to f/u prn Moraima Yang RDN, ALPA Certified Diabetes Care and Photonics Engineering Technician P: [phone] Thank you for this referral
== END ==
PROVIDERS: PCP Internal Medicine; Referring Provider Internal Medicine
DX: E11.9 Type 2 diabetes mellitus without complications (principal); Z71.3 Dietary counseling and surveillance; Z83.3 Family history of diabetes mellitus; Z79.84 Long term (current) use of oral hypoglycemic drugs
CPT/HCPCS: 97803

== ENCOUNTER → 2025-01-02 10:45 | Outpatient (CLI) | payer MEDICARE, SELFPAY ==
[2020-03-14 02:15] VITALS: BMI 25.0
[2025-01-02 11:53] LABS: Appearance Urine UA CLEAR; Bilirubin Urine UA NEGATIVE (NEGATIVE); Color Urine UA YELLOW; Glucose Urine UA NEGATIVE (Negative); Ketones Urine UA NEGATIVE (NEGATIVE); Leukocyte Esterase Urine UA NEGATIVE (NEGATIVE); Nitrite Urine UA NEGATIVE (Negative); Occult Blood Urine UA NEGATIVE (Negative); Protein Urine UA NEGATIVE (Negative); Specific Gravity Urine UA 1.015 (1.000-1.035); Urobilinogen Urine UA 0.2 E.U./dL (0.2)
[2025-01-02 11:54] LABS: pH Urine UA 5.5 (4.5-8.0)
[2025-01-02 11:59] LABS: Culture Indicated Urine Cult Not Indicated
== END ==
PROVIDERS: PCP Internal Medicine; Referring Provider Internal Medicine; Visit Provider Internal Medicine
DX: N39.0 Urinary tract infection, site not specified (principal); R35.0 Frequency of micturition
CPT/HCPCS: 81001

== ENCOUNTER → 2025-01-30 16:28 | Outpatient (CLI) | payer MEDICARE, SELFPAY ==
[2020-03-14 02:15] VITALS: BMI 25.0
--- NOTE | 2025-01-30 16:29 | DI.MG.S_ITS ---
MM screening mammo BI: 01/30/2025. BI-RADS: 2 CLINICAL: 79-year old female for bilateral screening mammogram. Tyrer-Cuzick lifetime risk of 1.9%. No personal or first-degree family history of breast cancer. The patient is status-post reduction mammoplasty. PRIOR EXAMS 07/03/2023, 10/22/2019. MAMMOGRAPHY TECHNIQUE: 2D and 3D (tomosynthesis) digital mammographic views obtained, with additional images as needed for full coverage. Current study was also evaluated with a Computer Aided Detection (CAD) system. DENSITY C. The breasts are heterogeneously dense, which may obscure small masses. MAMMOGRAPHY FINDINGS Bilateral: Typically-benign vascular calcifications noted. No significant change from comparison. IMPRESSION: * No evidence of malignancy with benign findings. RECOMMENDATIONS Bilateral * Annual screening mammography. OVERALL ASSESSMENT CATEGORY BI-RADS-2: Benign. The [employer] recommends annual screening mammography beginning at age 40 for women with average risk of breast cancer. ELECTRONICALLY SIGNED: Khari Barakat M.D. on 01/31/2025 at 10:29:08 AM PT Interpreting Station ID: [id number]
== END ==
LOC: MAMMO 16:29
PROVIDERS: PCP Internal Medicine; Referring Provider Internal Medicine; Visit Provider Internal Medicine
DX: Z12.31 Encounter for screening mammogram for malignant neoplasm of breast (principal); R92.333 Mammographic heterogeneous density, bilateral breasts
CPT/HCPCS: 77063; 77067